=== PATIENT | male | born 1960 | race Caucasian/White ===

== ENCOUNTER → 2020-04-24 | Outpatient (CLI) | payer MEDICARE, SELFPAY ==
[2020-04-24 09:47] VITALS: BMI 24.4
--- NOTE | 2020-04-24 11:07 | EKG12_ITS ---
Test Reason : ROUTINE Blood Pressure : / mmHG Vent. Rate : 069 BPM Atrial Rate : 267 BPM P-R Int : 000 ms QRS Dur : 084 ms QT Int : 378 ms P-R-T Axes : 000 135 134 degrees QTc Int : 405 ms Normal sinus rhythm Low voltage QRS Left posterior fascicular block Abnormal ECG Confirmed by MINNA ELMORE, ANGELIKA ([id number]), publications editor CARMELINA BACON ([id number]) on 04/29/2020 10:25:05 AM Referred By: Loren Rojas Confirmed By:ANGELIKA BUITRAGO MD
--- NOTE | 2020-04-24 11:09 | RAD_ITS ---
STUDY: X-RAY CHEST REASON FOR EXAM: Male, 59 years old. SOFT MASS OF THE JAW, NECROSIS TECHNIQUE: PA and lateral views of the chest. COMPARISON: None. FINDINGS: Hyperinflation. Decreased bronchovascular markings in both lungs suggestive of a emphysematous changes. There is no demonstrated pleural abnormality. Normal size heart. Normal mediastinum and tremaine. There is prominence of the pulmonary hilar arteries without peripheral pulmonary vascular congestion, suggesting pulmonary hypertension. There is atherosclerotic tortuosity of the aortic arch and descending thoracic aorta. There are diffuse degenerative changes of the visualized thoracic spine. Prior laminectomy and fusion of the lower cervical spine. There is no demonstrated abnormality of the visualized soft tissue structures of the upper abdomen. RAD/Chest PA and Lateral IMPRESSION: Hyperinflation. Electronically Signed: Marck Whitney, at 15:34 EDT , Service support ,
[2020-04-24 11:28] LABS: Erythrocyte Sedimentation Rate 45 mm/hr (0-20)
[2020-04-24 11:30] LABS: Absolute Lymphocyte Count 1.77 X10^3/uL (0.83-4.51); Absolute Neutrophil Count 5.2 X10^3/uL (2.0-7.7); Basophil# 0.05 X10^3/uL; Basophil% 0.6 % (0-1); Eosinophil# 0.35 X10^3/uL; Eosinophils% 4.1 % (0-5); Hematocrit 32.3 % (40-54); Hemoglobin 10.2 g/dL (13.0-16.5); Lymphocyte # 1.77 X10^3/ul (4.0); Lymphocyte % 20.7 % (19-41); Mean Corp Hgb Conc 31.6 g/dL (32-36); Mean Corpuscular Hgb 27.9 pg (27.0-32.0); Mean Corpuscular Volume 88.3 fL (80-94); Mean Platelet Vol. 9.2 fl (6.2-12.0); Monocyte# 1.09 X10^3/uL; Monocyte% 12.7 % (0-10); NRBC Flagged by Analyzer 0 % (0-5); Neutrophil # 5.24 X10^3/uL (2.7-7.7); Neutrophil % 61.3 % (47-70); Platelet Count 347 K/mm3 (150-450); RBC Distribution Width CV 15.8 % (11.6-14.6); RBC Distribution Width SD 51.7 fl (35.1-43.9); Red Blood Count 3.66 M/mm3 (4.6-6.2); White Blood Count 8.6 K/mm3 (4.4-11.0)
[2020-04-24 11:39] LABS: Hemoglobin A1c 5.4 % (3.8-5.6)
[2020-04-24 11:59] LABS: ALB/GLOB Ratio 0.7 RATIO (0.9-2.4); AST(SGOT) 8 U/L (15-37); Alanine Aminotransfer ALT/SGPT 11 U/L (16-61); Albumin, Serum 3.1 g/dL (3.2-5.0); Alkaline Phosphatase 106 U/L (45-117); Anion Gap 4 (5-15); BUN 14 mg/dL (7-18); BUN/Creat Ratio 20.9 RATIO (10-20); Calcium,Total 8.7 mg/dL (8.5-10.1); Chloride 102 mmol/L (98-107); Creatinine, Serum 0.67 mg/dL (0.70-1.30); EST Glomerular Filtration Rate 130 mL/min (>60); Est Glom Filt Rate - Afr Amer 157 mL/min (>60); Globulin 4.6 g/dL (2.2-4.2); Glucose 80 mg/dL (74-106); Potassium 4.2 mmol/L (3.5-5.1); Prealbumin 21.1 mg/dL (20.0-40.0); Protein, Total 7.7 g/dL (6.4-8.2); Sodium Level 135 mmol/L (136-145)
== END | disposition home or self-care (01) ==
PROVIDERS: PCP Nurse Practitioner Family; Referring Provider Nurse Practitioner
DX: L59.8 Other specified disorders of the skin and subcutaneous tissue related to radiation (principal); C09.9 Malignant neoplasm of tonsil, unspecified; C05.9 Malignant neoplasm of palate, unspecified; Z92.3 Personal history of irradiation; H35.719 Central serous chorioretinopathy, unspecified eye
CPT/HCPCS: 36415; 71046; 80053; 83036; 84134; 85025; 85652; 93005; 99203; G0463

== ENCOUNTER 2020-05-08 09:30 | Outpatient (RCR) | payer MEDICARE, SELFPAY ==
[2020-04-24 09:47] VITALS: BP 93/63; PULSE 81; RESP 16; TEMP 36; BMI 24.4
--- NOTE | 2020-04-24 09:49 | WC ---
PT WILL BRING MED LIST IN AT NEXT VISIT.
--- NOTE | 2020-04-24 11:14 | PCM.CONHBO ---
(1) Soft tissue radionecrosis Status: Acute Current Visit: Yes Code(s): L59.8 - Other specified disorders of the skin and subcutaneous tissue related to radiation; Y84.2 - Radiological procedure and radiotherapy as the cause of abnormal reaction of the patient, or of later complication, without mention of misadventure at the time of the procedure (2) Cancer of tonsil Status: Chronic Current Visit: Yes Code(s): C09.9 - Malignant neoplasm of tonsil, unspecified (3) Central serous retinopathy Status: Chronic Current Visit: Yes Qualifiers: Code(s): H35.719 - Central serous chorioretinopathy, unspecified eye (4) Cancer of palate Status: Acute Current Visit: Yes Code(s): C05.9 - Malignant neoplasm of palate, unspecified (5) History of head and neck radiation Status: Acute Current Visit: Yes Code(s): Z92.3 - Personal history of irradiation History of Present Illness Date of Service: 04/24/20 Presenting Chief Complaint: HBO 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 Patient will obtain a chest x-ray labs EKG we will recheck all of his records from 2017 for radiation and chemotherapy. At that point we will get consent and HBO orientation and patient will be scheduled for HBO treatments the dentist that is doing the oral surgeon would like 30 treatments total 20 treatments prior to surgery and 10 treatments after surgery [] Past Medical History Chronic Problems Central serous retinopathy (Chronic) Hypertension (Chronic) Cancer of tonsil (Chronic) Dyslipidemia (Chronic) BPH (benign prostatic hyperplasia) (Chronic) GERD (gastroesophageal reflux disease) (Chronic) Psoriasis (Chronic) COPD (chronic obstructive pulmonary disease) (Chronic) Allergies/Adverse Reactions: Allergies No Known Allergies Allergy (Verified 04/28/17 10:48) Home Medications: Ambulatory Orders Medication Instructions Recorded Cyanocobalamin [Vitamin B12] 1,000 mcg PO DAILY 04/28/17 Glucosamine/MSM/Chondroitin A 1 each PO DAILY 04/28/17 [Glucosamine Chondroit MSM Tab] Metoprolol Tartrate [Lopressor 50 mg PO BID 04/28/17 (beta dar)] Omeprazole [Prilosec] 40 mg PO DAILY 04/28/17 Tadalafil [Cialis] 20 mg PO DAILY 04/28/17 Tamsulosin HCl [Flomax] 0.4 mg PO BID 04/28/17 Thiamine Hydrochloride [Vitamin B1] 100 mg PO DAILY 04/28/17 Acetaminophen [Tylenol] 650 mg PO Q6H PRN PRN 06/03/17 Amitriptyline HCl [Elavil] 25 mg PO QHS 06/03/17 Bxm Liquid [BMX LIQUID] 5 ml PO Q4H PRN PRN 06/03/17 Cetirizine HCl [Zyrtec] 10 mg PO DAILY 06/03/17 Fluconazole [Diflucan] 100 mg PO DAILY 06/03/17 Guaifenesin [Mucinex] 1,200 mg PO BID 06/03/17 Magnesium Oxide [Mag-Ox 400] 400 mg PO BID 06/03/17 Morphine Sulfate 0.5 - 1 ml PO Q4H PRN PRN 06/03/17 Oxycodone HCl 5 ml PO Q4H PRN PRN 06/03/17 cycloBENZAPRine HCl [Flexeril] 10 mg PO TID PRN PRN 06/03/17 Clotrimazole [Athlete's Foot] 60 gm TP BID #1 tube 06/04/17 Furosemide [Lasix] 40 mg PO DAILY #30 tablet 06/04/17 Maternal Family History: No pertinent history Smoking Status: Current every day smoker Tobacco Use: Cigarettes Alcohol: Sober Drugs: None Review of Systems Constitutional: Denies: Chills, Fever Eyes: Reports: - - Sinus and left eye. Denies: Blurred vision, Drainage, Pain HEENT: Denies: Difficulty Hearing, Difficulty Swallowing, Sore Throat, Visual Changes Cardiovascular: Denies: Chest Pain, Palpitations, Syncope Respiratory: Denies: Cough, Shortness of Breath Gastrointestinal: Denies: Abdominal Pain, Nausea, Vomiting Genitourinary: Denies: Dysuria, Frequency Musculoskeletal: Denies: Joint Pain, Muscle pain Skin: Denies: Jaundice, Rash Neurological: Denies: Balance problems, Change in Speech, Difficulty swallowing, Focal weakness Psychiatric: Denies: Anxiety, Depression Endocrine: Denies: Change in Body Habitus Hematologic/ Lymphatic: Reports: Anemia. Denies: Adenopathy - Physical Exam Vital Signs Temp Pulse Resp BP 96.8 F L 81 16 93/63 04/24/20 09:47 04/24/20 09:47 04/24/20 09:47 04/24/20 09:47 General: Oriented x3, Cooperative, Well developed HEENT: Atraumatic, PERRLA Oral: Moist Mucosa Neck: Supple, No JVD Lungs: Clear to auscultation, Normal air movement Cardiovascular: Regular rate, Regular Rhythm Abdomen: Bowel Sounds Present, Soft, Non Tender, No Hepato-splenomegaly Extremities: No clubbing, No edema Musculoskeletal: No Tenderness to Palpation of Joints or Extremities Lymphatic: No Cervical, Supraclavicular, or Inguinal Adenopathy Neurological: Cranial nerves II-XII grossly intact, Neuro grossly intact Psych/Mental Status: Normal Affect, Appropriate, Alert and oriented to time, place, person, mood and affect Assessment/Plan Active Problems Soft tissue radionecrosis (Acute) Cancer of palate (Acute) History of head and neck radiation (Acute) Central serous retinopathy (Chronic) Cancer of tonsil (Chronic) SHAVON BLANKENSHIP is an appropriate candidate for hyperbaric oxygen therapy. Hyperbaric Oxygen Therapy would be an essential adjunct in the resolution and treatment of this patient's presenting problem. This patient has sufficient physiologic and psychological stamina to undergo the rigors of hyperbaric oxygen therapy. As such, I recommend the following: Hyperbaric Oxygen Treatments at 2.0 RICKIE in 100% Oxygen for 90 minutes per treatment, for 30-40 treatments. I have discussed the possible benefits of hyperbaric oxygen therapy with this patient. I have also presented and described the risks, including: air gas embolism, pneumothorax, central nervous system and pulmonary oxygen toxicity, flash pulmonary edema, hypoglycemia, reversible visual refractive changes, ear and sinus adelina-trauma, and confinement anxiety. The patient has verbalized understanding of these risks, and is still wanting to undergo hyperbaric oxygen therapy. The patient understands the significant time and transportation commitment involved in daily treatments of up to two hours duration and has stated that they are willing to commit to this therapy. We will follow-up in 1 week with the results of lab work and x-rays EKG to progress on for further treatment with HBO.
[2020-05-08 09:53] VITALS: BP 105/68; PULSE 72; RESP 18; TEMP 35.8; BMI 24.4
--- NOTE | 2020-05-08 12:00 | PCM.CONHBO ---
(1) Soft tissue radionecrosis Status: Acute Current Visit: Yes Code(s): L59.8 - Other specified disorders of the skin and subcutaneous tissue related to radiation; Y84.2 - Radiological procedure and radiotherapy as the cause of abnormal reaction of the patient, or of later complication, without mention of misadventure at the time of the procedure (2) Cancer of tonsil Status: Chronic Current Visit: Yes Code(s): C09.9 - Malignant neoplasm of tonsil, unspecified (3) Central serous retinopathy Status: Chronic Current Visit: Yes Qualifiers: Code(s): H35.719 - Central serous chorioretinopathy, unspecified eye (4) Cancer of palate Status: Acute Current Visit: Yes Code(s): C05.9 - Malignant neoplasm of palate, unspecified (5) History of head and neck radiation Status: Acute Current Visit: Yes Code(s): Z92.3 - Personal history of irradiation History of Present Illness Date of Service: 05/08/20 Presenting Chief Complaint: HBO 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 The patient is a 59 year old M who [facility] the possibility of initiating hyperbaric oxygen therapy for treatment of radionecrosis of the left jaw.. 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 Patient is then chest x-ray has been found to be clear EKG is abnormal but cardiology thinks is just due to his axis echocardiogram is scheduled for this Wednesday depending on the echocardiogram and the ejection fraction that is the only thing holding back on starting HBO HBO will be started at 1 treatment per day delivered Wednesday through Wednesday for a 2 ingrid absolute RICKIE for 90 minutes without air breaks patient will have 30 total treatments 20 treatments then surgery and then another 10 treatments or if necessary will expand for more. Patient was instructed that he cannot smoke 2 to 3 hours prior to being pressurized and patient will be oriented daily to the HBO treatments and vital signs will be monitored closely [] Past Medical History Chronic Problems (Last Reviewed 05/06/20 @ 16:[address] 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) Bilateral lower extremity edema (Chronic) Dyslipidemia (Chronic) BPH (benign prostatic hyperplasia) (Chronic) GERD (gastroesophageal reflux disease) (Chronic) Psoriasis (Chronic) COPD (chronic obstructive pulmonary disease) (Chronic) Allergies/Adverse Reactions: Allergies No Known Allergies Allergy (Verified 05/06/20 10:31) Home Medications: Ambulatory Orders Medication Instructions Recorded Omeprazole [Prilosec] 40 mg PO DAILY 04/28/17 Acetaminophen [Tylenol] 650 mg PO Q6H PRN PRN 06/03/17 Cetirizine HCl [Zyrtec] 10 mg PO DAILY 06/03/17 albuterol sulfate 90 mcg/actuation 2 puff INHALATION Q6H PRN 05/06/20 aerosol inhaler baclofen 10 mg tablet 10 mg PO BID tab 05/06/20 ferrous sulfate 325 mg (65 mg 325 mg PO BID 05/06/20 iron) tablet gabapentin 300 mg capsule 600 mg PO TID cap 05/06/20 guaifenesin 1,200 mg tablet, 1,200 mg PO BID PRN 05/06/20 extended release 12 hr levothyroxine 75 mcg tablet 75 mcg PO DAILY tab 05/06/20 metoprolol succinate 25 mg PO 05/06/20 tablet,extended release 24 hr multivitamin 1 tab PO DAILY 05/06/20 sertraline 100 mg tablet 200 mg PO Q24H tab 05/06/20 tamsulosin 0.4 mg capsule 0.8 mg PO DAILY cap 05/06/20 Maternal Family History: Family History (Last Reviewed 05/06/20 @ 16:[address] Ja Worthington MD) Father Cancer Mother CVA (cerebral vascular accident) Family History: No pertinent history Smoking Status: Current every day smoker Tobacco Use: Cigarettes Alcohol: Sober Drugs: None Review of Systems Constitutional: Denies: Chills, Fever Eyes: Denies: Blurred vision, Drainage, Pain HEENT: Denies: Difficulty Hearing, Difficulty Swallowing, Sore Throat, Visual Changes Cardiovascular: Denies: Chest Pain, Palpitations, Syncope Respiratory: Denies: Cough, Shortness of Breath Gastrointestinal: Denies: Abdominal Pain, Nausea, Vomiting Genitourinary: Denies: Dysuria, Frequency Musculoskeletal: Denies: Joint Pain, Muscle pain Skin: Denies: Jaundice, Rash Neurological: Denies: Balance problems, Change in Speech, Difficulty swallowing, Focal weakness Psychiatric: Denies: Anxiety, Depression Endocrine: Denies: Change in Body Habitus Hematologic/ Lymphatic: Denies: Adenopathy - Physical Exam Vital Signs Temp Pulse Resp BP 96.5 F L 72 18 105/68 05/08/20 09:53 05/08/20 09:53 05/08/20 09:53 05/08/20 09:53 General: Oriented x3, Cooperative, Well developed HEENT: Atraumatic, PERRLA Oral: Moist Mucosa Neck: Supple, No JVD Lungs: Clear to auscultation, Normal air movement Cardiovascular: Regular rate, Regular Rhythm Abdomen: Bowel Sounds Present, Soft, Non Tender, No Hepato-splenomegaly Extremities: No clubbing, No edema Wound Measurements and Assessment WC - Nurse 2 - General Ulcer CM Notes Start: 04/24/20 09:32 Freq: Status: Active Protocol: Activity Type Activity Date Activity User E-Sign Co-Sign Detail Recorded Client Recorded Date Recorded By Document 05/08/20 10:18 MW [id number] 05/08/20 10:21 MW 05/08/20 10:18 Pain Scale: 0-10 Numeric [Pain] -Is Patient Pain Free? Yes Musculoskeletal: No Tenderness to Palpation of Joints or Extremities Lymphatic: No Cervical, Supraclavicular, or Inguinal Adenopathy Neurological: Cranial nerves II-XII grossly intact, Neuro grossly intact Psych/Mental Status: Normal Affect, Appropriate Assessment/Plan Active Problems (Last Reviewed 05/06/20 @ 16:[address] Ja Worthington MD) Soft tissue radionecrosis (Acute) Cancer of palate (Acute) History of head and neck radiation (Acute) Central serous retinopathy (Chronic) Cancer of tonsil (Chronic) SHAVON BLANKENSHIP is an appropriate candidate for hyperbaric oxygen therapy. Hyperbaric Oxygen Therapy would be an essential adjunct in the resolution and treatment of this patient's presenting problem. This patient has sufficient physiologic and psychological stamina to undergo the rigors of hyperbaric oxygen therapy. As such, I recommend the following: Hyperbaric Oxygen Treatments at 2.0 RICKIE in 100% Oxygen for 90 minutes per treatment, for [] treatments. I have discussed the possible benefits of hyperbaric oxygen therapy with this patient. I have also presented and described the risks, including: air gas embolism, pneumothorax, central nervous system and pulmonary oxygen toxicity, flash pulmonary edema, hypoglycemia, reversible visual refractive changes, ear and sinus adelina-trauma, and confinement anxiety. The patient has verbalized understanding of these risks, and is still wanting to undergo hyperbaric oxygen therapy. The patient understands the significant time and transportation commitment involved in daily treatments of up to two hours duration and has stated that they are willing to commit to this therapy. 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
== END 2020-05-15 23:59 ==
LOC: WC 09:30
PROVIDERS: PCP Nurse Practitioner Family; Visit Provider Nurse Practitioner
DX: L59.8 Other specified disorders of the skin and subcutaneous tissue related to radiation (principal); Y84.2 Radiological procedure and radiotherapy as the cause of abnormal reaction of the patient, or of later complication, without mention of misadventure at the time of the procedure; M27.2 Inflammatory conditions of jaws; C09.9 Malignant neoplasm of tonsil, unspecified; H35.719 Central serous chorioretinopathy, unspecified eye; E78.5 Hyperlipidemia, unspecified; I10 Essential (primary) hypertension; J44.9 Chronic obstructive pulmonary disease, unspecified; N40.0 Benign prostatic hyperplasia without lower urinary tract symptoms; L40.9 Psoriasis, unspecified; K21.9 Gastro-esophageal reflux disease without esophagitis; F17.210 Nicotine dependence, cigarettes, uncomplicated; Z92.3 Personal history of irradiation; Z82.3 Family history of stroke
CPT/HCPCS: 99203; 99212; G0463

== ENCOUNTER → 2020-05-10 | Outpatient (CLI) | payer MEDICARE, SELFPAY ==
[2020-05-08 10:27] VITALS: BMI 24.5
--- NOTE | 2020-05-10 13:50 | ECHOD_ITS ---
Reason For Study: Abnormal EKG Procedure This was a 2D Doppler, Color Flow transthoracic echocardiogram. Contrast injection was performed. Technically difficult study, unable to obtain PLAX image. PSAX were taken from subcostal window. Exam performed in department. Left Ventricle Normal LV size. The estimated ejection fraction is 55 %. No evidence for diastolic dysfunction. No regional wall motion abnormalities noted. Right Ventricle Normal RV size. Normal systolic function. Atria Normal left atrium. Normal right atrium. No doppler evidence for ASD. Bubble contrast study negative for right to left interatrial shunt. Mitral Valve There is no mitral valve stenosis. No mitral valve insufficiency. Tricuspid Valve There is no tricuspid stenosis. No tricuspid valve insufficiency. Unable to estimate RV systolic pressure due to inadequate jet, pulmonary artery pressure probably normal. Aortic Valve Trisinus/trileaflet aortic valve. There is no aortic stenosis. No aortic valve insufficiency. Pulmonic Valve There is no pulmonic valvular stenosis. No pulmonic valve insufficiency. Great Vessels Normal aortic root. Pericardium/Pleural No pericardial effusion. Medication 22 gauge I.V. with prn adaptor inserted into right arm. Performed a rapid injection of agitated mix of 9 cc saline and 1cc air to assess for atrial septal defect. MMode/2D Measurements & Calculations RVDd: 3.5 cm LAV(MOD-sp4): 32.7 ml LA A4 area: 14.1 cm2 RA A4 area: 16.1 cm2 Time Measurements MV dec time: 0.24 sec Doppler Measurements & Calculations MV E max chaz: 49.5 cm/sec Lat Peak E' Chaz: 11.7 cm/sec Med Peak E' Chaz: 8.5 cm/sec MV A max chaz: 76.8 cm/sec E/E' lat: 4.2 E/E' med: 5.9 MV E/A: 0.65 MV V2 max: 81.5 cm/sec MV P1/2t max chaz: 61.5 cm/sec Ao V2 max: 111.7 cm/sec MV max P.7 mmHg MV P1/2t: 78.8 msec Ao max P.0 mmHg MV V2 mean: 44.6 cm/sec MV mean P.93 mmHg MV dec slope: 228.6 cm/sec2 MV V2 VTI: 16.9 cm MVA(P1/2t): 2.8 cm2 LV V1 max: 92.1 cm/sec PA V2 max: 102.1 cm/sec TR max chaz: 239.2 cm/sec LV V1 max P.4 mmHg TR max P.9 mmHg Interpretation Summary The estimated ejection fraction is 55 %. No evidence for diastolic dysfunction. Ordering Physician: aJ Worthington Referring Physician: Ja Worthington Performed By: Tulio Khan RCS
== END | disposition home or self-care (01) ==
PROVIDERS: PCP Nurse Practitioner Family; Referring Provider Specialist; Visit Provider Specialist
DX: R94.31 Abnormal electrocardiogram [ECG] [EKG] (principal)
CPT/HCPCS: 93306; A4216

== ENCOUNTER 2020-06-14 13:00 | Outpatient (RCR) | payer MEDICARE, SELFPAY ==
[2020-05-08 10:27] VITALS: BMI 24.5
[2020-05-16 00:18] VITALS: BP 105/68; PULSE 72; RESP 18; TEMP 35.8
--- NOTE | 2020-05-20 09:59 | WC ---
05/20/20 Approval from [employer] PPO for 120 Units of HBO From 05/22/20 to 11/16/2020 Auth # [id number]
[2020-05-23 14:10] VITALS: BP 120/73; BP 136/93; PULSE 66; PULSE 71; RESP 16; RESP 18; TEMP 36.2; TEMP 36.6
--- NOTE | 2020-05-23 15:58 | PCM.HBO.PN ---
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 Progress:Today's session represents the 1st session of hyperbaric oxygen therapy, of an expected 30 such treatments. Tolerance of hyperbaric oxygen therapy: Hyperbaric oxygen therapy was administered as per the facility's protocol. Hyperbaric oxygen therapy was administered for 90 minutes at 2 ingrid, with no air breaks. Upon emergence from the hyperbaric oxygen chamber the patient had no complaints or complications. The patient's vital signs remained stable. The patient was discharged in good condition. Past Medical History Chronic Problems (Last Reviewed 05/06/20 @ 16:[address] 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) Bilateral lower extremity edema (Chronic) Dyslipidemia (Chronic) BPH (benign prostatic hyperplasia) (Chronic) GERD (gastroesophageal reflux disease) (Chronic) Psoriasis (Chronic) COPD (chronic obstructive pulmonary disease) (Chronic) Allergies/Adverse Reactions: Allergies No Known Allergies Allergy (Verified 05/06/20 10:31) Home Medications: Ambulatory Orders Medication Instructions Recorded Omeprazole [Prilosec] 40 mg PO DAILY 04/28/17 Acetaminophen [Tylenol] 650 mg PO Q6H PRN PRN 06/03/17 Cetirizine HCl [Zyrtec] 10 mg PO DAILY 06/03/17 albuterol sulfate 90 mcg/actuation 2 puff INHALATION Q6H PRN 05/06/20 aerosol inhaler baclofen 10 mg tablet 10 mg PO BID tab 05/06/20 ferrous sulfate 325 mg (65 mg 325 mg PO BID 05/06/20 iron) tablet gabapentin 300 mg capsule 600 mg PO TID cap 05/06/20 guaifenesin 1,200 mg tablet, 1,200 mg PO BID PRN 05/06/20 extended release 12 hr levothyroxine 75 mcg tablet 75 mcg PO DAILY tab 05/06/20 metoprolol succinate 25 mg PO 05/06/20 tablet,extended release 24 hr multivitamin 1 tab PO DAILY 05/06/20 sertraline 100 mg tablet 200 mg PO Q24H tab 05/06/20 tamsulosin 0.4 mg capsule 0.8 mg PO DAILY cap 05/06/20 Maternal Family History: Family History (Last Reviewed 05/06/20 @ 16:[address] Ja Worthington MD) Father Cancer Mother CVA (cerebral vascular accident) Family History: No pertinent history Smoking Status: Current every day smoker Tobacco Use: Cigarettes Physical Exam Vital Signs Temp Pulse Resp BP 97.8 F 71 18 120/73 05/23/20 14:10 05/23/20 14:10 05/23/20 14:10 05/23/20 14:10 General: Alert, Oriented x3, Cooperative, No apparent distress HEENT: Atraumatic, PERRLA, EOMI, Normocephalic, TM's Clear, EAC Clear Lungs: Clear to auscultation, Normal air movement, No rhonchi, No wheeze, No rales Cardiovascular: Regular rate, Regular Rhythm, Normal S1, Normal S2, No murmurs Psych/Mental Status: Normal Affect, Appropriate, Alert and oriented to time, place, person, mood and affect Assessment/Plan The patient appears to be tolerating hyperbaric oxygen therapy well, which will be continued as per the patient's medical plan. Treatment Course Number Number of HBO Treatments 30 Ordered Treatment Course Number 1 Treatment # 1 Chamber # [id number] Chamber Type Monoplace Other - Detail 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
--- NOTE | 2020-05-24 16:33 | PCM.HBO.PN ---
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 Progress:Today's session represents the 2nd session of hyperbaric oxygen therapy, of an expected 30 such treatments. Tolerance of hyperbaric oxygen therapy: Hyperbaric oxygen therapy was administered as per the facility's protocol. Hyperbaric oxygen therapy was administered for 90 minutes at 2 ingrid, with no air breaks. Upon emergence from the hyperbaric oxygen chamber the patient had no complaints or complications. The patient's vital signs remained stable. The patient was discharged in good condition. Past Medical History Chronic Problems (Last Reviewed 05/06/20 @ 16:[address] 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) Bilateral lower extremity edema (Chronic) Dyslipidemia (Chronic) BPH (benign prostatic hyperplasia) (Chronic) GERD (gastroesophageal reflux disease) (Chronic) Psoriasis (Chronic) COPD (chronic obstructive pulmonary disease) (Chronic) Allergies/Adverse Reactions: Allergies No Known Allergies Allergy (Verified 05/06/20 10:31) Home Medications: Ambulatory Orders Medication Instructions Recorded Omeprazole [Prilosec] 40 mg PO DAILY 04/28/17 Acetaminophen [Tylenol] 650 mg PO Q6H PRN PRN 06/03/17 Cetirizine HCl [Zyrtec] 10 mg PO DAILY 06/03/17 albuterol sulfate 90 mcg/actuation 2 puff INHALATION Q6H PRN 05/06/20 aerosol inhaler baclofen 10 mg tablet 10 mg PO BID tab 05/06/20 ferrous sulfate 325 mg (65 mg 325 mg PO BID 05/06/20 iron) tablet gabapentin 300 mg capsule 600 mg PO TID cap 05/06/20 guaifenesin 1,200 mg tablet, 1,200 mg PO BID PRN 05/06/20 extended release 12 hr levothyroxine 75 mcg tablet 75 mcg PO DAILY tab 05/06/20 metoprolol succinate 25 mg PO 05/06/20 tablet,extended release 24 hr multivitamin 1 tab PO DAILY 05/06/20 sertraline 100 mg tablet 200 mg PO Q24H tab 05/06/20 tamsulosin 0.4 mg capsule 0.8 mg PO DAILY cap 05/06/20 Maternal Family History: Family History (Last Reviewed 05/06/20 @ 16:[address] Ja Worthington MD) Father Cancer Mother CVA (cerebral vascular accident) Family History: No pertinent history Smoking Status: Current every day smoker Tobacco Use: Cigarettes Physical Exam Vital Signs Temp Pulse Resp BP 97.8 F 71 18 120/73 05/23/20 14:10 05/23/20 14:10 05/23/20 14:10 05/23/20 14:10 General: Alert, Oriented x3, Cooperative, No apparent distress HEENT: Atraumatic, TM's Clear Lungs: Clear to auscultation, Normal air movement Cardiovascular: Regular rate, Regular Rhythm Psych/Mental Status: Normal Affect, Appropriate, Alert and oriented to time, place, person, mood and affect Assessment/Plan Treatment Course Number Number of HBO Treatments 30 Ordered Treatment Course Number 1 Treatment # 2 Chamber # [id number] Chamber Type Monoplace Other - Detail 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
[2020-05-24 16:50] VITALS: BP 125/64; BP 128/90; PULSE 65; PULSE 77; RESP 18; TEMP 36.3; TEMP 36.4
--- NOTE | 2020-05-27 15:10 | PCM.HBO.PN ---
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 Progress:Today's session represents the 3rd session of hyperbaric oxygen therapy, of an expected 30 such treatments. Tolerance of hyperbaric oxygen therapy: Hyperbaric oxygen therapy was administered as per the facility's protocol. Hyperbaric oxygen therapy was administered for 90 minutes at 2 ingrid, with no air breaks. Upon emergence from the hyperbaric oxygen chamber the patient had no complaints or complications. The patient's vital signs remained stable. The patient was discharged in good condition. Past Medical History Chronic Problems (Last Reviewed 05/06/20 @ 16:[address] 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) Bilateral lower extremity edema (Chronic) Dyslipidemia (Chronic) BPH (benign prostatic hyperplasia) (Chronic) GERD (gastroesophageal reflux disease) (Chronic) Psoriasis (Chronic) COPD (chronic obstructive pulmonary disease) (Chronic) Allergies/Adverse Reactions: Allergies No Known Allergies Allergy (Verified 05/06/20 10:31) Home Medications: Ambulatory Orders Medication Instructions Recorded Omeprazole [Prilosec] 40 mg PO DAILY 04/28/17 Acetaminophen [Tylenol] 650 mg PO Q6H PRN PRN 06/03/17 Cetirizine HCl [Zyrtec] 10 mg PO DAILY 06/03/17 albuterol sulfate 90 mcg/actuation 2 puff INHALATION Q6H PRN 05/06/20 aerosol inhaler baclofen 10 mg tablet 10 mg PO BID tab 05/06/20 ferrous sulfate 325 mg (65 mg 325 mg PO BID 05/06/20 iron) tablet gabapentin 300 mg capsule 600 mg PO TID cap 05/06/20 guaifenesin 1,200 mg tablet, 1,200 mg PO BID PRN 05/06/20 extended release 12 hr levothyroxine 75 mcg tablet 75 mcg PO DAILY tab 05/06/20 metoprolol succinate 25 mg PO 05/06/20 tablet,extended release 24 hr multivitamin 1 tab PO DAILY 05/06/20 sertraline 100 mg tablet 200 mg PO Q24H tab 05/06/20 tamsulosin 0.4 mg capsule 0.8 mg PO DAILY cap 05/06/20 Maternal Family History: Family History (Last Reviewed 05/06/20 @ 16:[address] Ja Worthington MD) Father Cancer Mother CVA (cerebral vascular accident) Family History: No pertinent history Smoking Status: Current every day smoker Tobacco Use: Cigarettes Physical Exam Vital Signs Temp Pulse Resp BP 97.5 F L 77 18 125/64 H 05/24/20 16:50 05/24/20 16:50 05/24/20 16:50 05/24/20 16:50 General: Alert, Oriented x3, Cooperative, No apparent distress HEENT: Atraumatic, TM's Clear Lungs: Clear to auscultation, Normal air movement Cardiovascular: Regular rate, Regular Rhythm Psych/Mental Status: Normal Affect, Appropriate, Alert and oriented to time, place, person, mood and affect Assessment/Plan Treatment Course Number Number of HBO Treatments 30 Ordered Treatment Course Number 1 Treatment # 3 Chamber # [id number] Chamber Type Monoplace Other - Detail 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
[2020-05-27 15:16] VITALS: BP 128/88; BP 133/98; PULSE 72; PULSE 87; RESP 16; TEMP 35.8; TEMP 36.2
--- NOTE | 2020-05-28 13:25 | PCM.HBO.PN ---
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 Progress:Today's session represents the 4th session of hyperbaric oxygen therapy, of an expected 30 such treatments. Tolerance of hyperbaric oxygen therapy: Hyperbaric oxygen therapy was administered as per the facility's protocol. Hyperbaric oxygen therapy was administered for 90 minutes at 2 ingrid, with no air breaks. Upon emergence from the hyperbaric oxygen chamber the patient had no complaints or complications. The patient's vital signs remained stable. The patient was discharged in good condition. Past Medical History Chronic Problems (Last Reviewed 05/06/20 @ 16:[address] 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) Bilateral lower extremity edema (Chronic) Dyslipidemia (Chronic) BPH (benign prostatic hyperplasia) (Chronic) GERD (gastroesophageal reflux disease) (Chronic) Psoriasis (Chronic) COPD (chronic obstructive pulmonary disease) (Chronic) Allergies/Adverse Reactions: Allergies No Known Allergies Allergy (Verified 05/06/20 10:31) Home Medications: Ambulatory Orders Medication Instructions Recorded Omeprazole [Prilosec] 40 mg PO DAILY 04/28/17 Acetaminophen [Tylenol] 650 mg PO Q6H PRN PRN 06/03/17 Cetirizine HCl [Zyrtec] 10 mg PO DAILY 06/03/17 albuterol sulfate 90 mcg/actuation 2 puff INHALATION Q6H PRN 05/06/20 aerosol inhaler baclofen 10 mg tablet 10 mg PO BID tab 05/06/20 ferrous sulfate 325 mg (65 mg 325 mg PO BID 05/06/20 iron) tablet gabapentin 300 mg capsule 600 mg PO TID cap 05/06/20 guaifenesin 1,200 mg tablet, 1,200 mg PO BID PRN 05/06/20 extended release 12 hr levothyroxine 75 mcg tablet 75 mcg PO DAILY tab 05/06/20 metoprolol succinate 25 mg PO 05/06/20 tablet,extended release 24 hr multivitamin 1 tab PO DAILY 05/06/20 sertraline 100 mg tablet 200 mg PO Q24H tab 05/06/20 tamsulosin 0.4 mg capsule 0.8 mg PO DAILY cap 05/06/20 Maternal Family History: Family History (Last Reviewed 05/06/20 @ 16:[address] Ja Worthington MD) Father Cancer Mother CVA (cerebral vascular accident) Family History: No pertinent history Smoking Status: Current every day smoker Tobacco Use: Cigarettes Physical Exam Vital Signs Temp Pulse Resp BP 97.2 F L 87 16 128/88 H 05/27/20 15:16 05/27/20 15:16 05/27/20 15:16 05/27/20 15:16 General: Alert, Oriented x3, Cooperative, No apparent distress HEENT: Atraumatic, TM's Clear Lungs: Clear to auscultation, Normal air movement Cardiovascular: Regular rate, Regular Rhythm Psych/Mental Status: Normal Affect, Appropriate, Alert and oriented to time, place, person, mood and affect Assessment/Plan Treatment Course Number Number of HBO Treatments 30 Ordered Treatment Course Number 1 Treatment # 4 Chamber # 674-40 Chamber Type Monoplace Other - Detail 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
[2020-05-28 15:00] VITALS: BP 133/89; PULSE 64; RESP 16; TEMP 36.4
--- NOTE | 2020-05-29 14:38 | HBO.PN.PCM_ITS ---
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 Progress:Today's session represents the 5th session of hyperbaric oxygen therapy, of an expected 30 such treatments. Tolerance of hyperbaric oxygen therapy: Hyperbaric oxygen therapy was administered as per the facility's protocol. Hyperbaric oxygen therapy was administered for 90 minutes at 2 ingrid, with no air breaks. Upon emergence from the hyperbaric oxygen chamber the patient had no complaints or complications. The patient's vital signs remained stable. The patient was discharged in good condition. Past Medical History Chronic Problems (Last Reviewed 05/06/20 @ 16:[address] 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) Bilateral lower extremity edema (Chronic) Dyslipidemia (Chronic) BPH (benign prostatic hyperplasia) (Chronic) GERD (gastroesophageal reflux disease) (Chronic) Psoriasis (Chronic) COPD (chronic obstructive pulmonary disease) (Chronic) Allergies/Adverse Reactions: Allergies No Known Allergies Allergy (Verified 05/06/20 10:31) Home Medications: Ambulatory Orders Medication Instructions Recorded Omeprazole [Prilosec] 40 mg PO DAILY 04/28/17 Acetaminophen [Tylenol] 650 mg PO Q6H PRN PRN 06/03/17 Cetirizine HCl [Zyrtec] 10 mg PO DAILY 06/03/17 albuterol sulfate 90 mcg/actuation 2 puff INHALATION Q6H PRN 05/06/20 aerosol inhaler baclofen 10 mg tablet 10 mg PO BID tab 05/06/20 ferrous sulfate 325 mg (65 mg 325 mg PO BID 05/06/20 iron) tablet gabapentin 300 mg capsule 600 mg PO TID cap 05/06/20 guaifenesin 1,200 mg tablet, 1,200 mg PO BID PRN 05/06/20 extended release 12 hr levothyroxine 75 mcg tablet 75 mcg PO DAILY tab 05/06/20 metoprolol succinate 25 mg PO 05/06/20 tablet,extended release 24 hr multivitamin 1 tab PO DAILY 05/06/20 sertraline 100 mg tablet 200 mg PO Q24H tab 05/06/20 tamsulosin 0.4 mg capsule 0.8 mg PO DAILY cap 05/06/20 Maternal Family History: Family History (Last Reviewed 05/06/20 @ 16:[address] Ja Worthington MD) Father Cancer Mother CVA (cerebral vascular accident) Family History: No pertinent history Smoking Status: Current every day smoker Tobacco Use: Cigarettes Physical Exam Vital Signs Temp Pulse Resp BP 97.6 F L 64 16 133/89 H 05/28/20 15:00 05/28/20 15:00 05/28/20 15:00 05/28/20 15:00 General: Alert, Oriented x3, Cooperative, No apparent distress HEENT: Atraumatic, TM's Clear Lungs: Clear to auscultation, Normal air movement Cardiovascular: Regular rate, Regular Rhythm Psych/Mental Status: Normal Affect, Appropriate, Alert and oriented to time, place, person, mood and affect Assessment/Plan Treatment Course Number Number of HBO Treatments 30 Ordered Treatment Course Number 1 Treatment # 5 Chamber # 2 Chamber Type Monoplace Other - Detail 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
[2020-05-29 15:27] VITALS: BP 112/82; BP 134/96; PULSE 79; PULSE 89; RESP 16; TEMP 35.9
[2020-05-30 14:26] VITALS: BP 102/65; BP 120/85; PULSE 72; PULSE 86; RESP 16; RESP 20; TEMP 36.1; TEMP 36.2
[2020-05-31 15:10] VITALS: BP 107/74; BP 122/85; PULSE 75; PULSE 86; RESP 16; TEMP 36.3; TEMP 36.6
--- NOTE | 2020-05-31 15:28 | PCM.HBO.PN ---
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 Progress:Today's session represents the 7th session of hyperbaric oxygen therapy, of an expected 30 such treatments. Tolerance of hyperbaric oxygen therapy: Hyperbaric oxygen therapy was administered as per the facility's protocol. Hyperbaric oxygen therapy was administered for 90 minutes at 2 ingrid, with no air breaks. Upon emergence from the hyperbaric oxygen chamber the patient had no complaints or complications. The patient's vital signs remained stable. The patient was discharged in good condition. Past Medical History Chronic Problems (Last Reviewed 05/06/20 @ 16:[address] 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) Bilateral lower extremity edema (Chronic) Dyslipidemia (Chronic) BPH (benign prostatic hyperplasia) (Chronic) GERD (gastroesophageal reflux disease) (Chronic) Psoriasis (Chronic) COPD (chronic obstructive pulmonary disease) (Chronic) Allergies/Adverse Reactions: Allergies No Known Allergies Allergy (Verified 05/06/20 10:31) Home Medications: Ambulatory Orders Medication Instructions Recorded Omeprazole [Prilosec] 40 mg PO DAILY 04/28/17 Acetaminophen [Tylenol] 650 mg PO Q6H PRN PRN 06/03/17 Cetirizine HCl [Zyrtec] 10 mg PO DAILY 06/03/17 albuterol sulfate 90 mcg/actuation 2 puff INHALATION Q6H PRN 05/06/20 aerosol inhaler baclofen 10 mg tablet 10 mg PO BID tab 05/06/20 ferrous sulfate 325 mg (65 mg 325 mg PO BID 05/06/20 iron) tablet gabapentin 300 mg capsule 600 mg PO TID cap 05/06/20 guaifenesin 1,200 mg tablet, 1,200 mg PO BID PRN 05/06/20 extended release 12 hr levothyroxine 75 mcg tablet 75 mcg PO DAILY tab 05/06/20 metoprolol succinate 25 mg PO 05/06/20 tablet,extended release 24 hr multivitamin 1 tab PO DAILY 05/06/20 sertraline 100 mg tablet 200 mg PO Q24H tab 05/06/20 tamsulosin 0.4 mg capsule 0.8 mg PO DAILY cap 05/06/20 Maternal Family History: Family History (Last Reviewed 05/06/20 @ 16:[address] Ja Worthington MD) Father Cancer Mother CVA (cerebral vascular accident) Family History: No pertinent history Smoking Status: Current every day smoker Tobacco Use: Cigarettes Physical Exam Vital Signs Temp Pulse Resp BP 97.8 F 86 16 107/74 05/31/20 15:10 05/31/20 15:10 05/31/20 15:10 05/31/20 15:10 General: Alert, Oriented x3, Cooperative, No apparent distress Psych/Mental Status: Normal Affect, Appropriate Assessment/Plan The patient appears to be tolerating hyperbaric oxygen therapy well, which will be continued as per the patient's medical plan. 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
[2020-06-03 13:35] VITALS: BP 110/74; BP 120/84; PULSE 68; PULSE 72; RESP 16; RESP 18; TEMP 35.8
--- NOTE | 2020-06-03 15:41 | PCM.HBO.PN ---
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 Progress:Today's session represents the 8th session of hyperbaric oxygen therapy, of an expected 30 such treatments. Tolerance of hyperbaric oxygen therapy: Hyperbaric oxygen therapy was administered as per the facility's protocol. Hyperbaric oxygen therapy was administered for 90 minutes at 2 ingrid, with no air breaks. Upon emergence from the hyperbaric oxygen chamber the patient had no complaints or complications. The patient's vital signs remained stable. The patient was discharged in good condition. Past Medical History Chronic Problems (Last Updated 05/31/20 @ 15:[address] 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) Bilateral lower extremity edema (Chronic) Dyslipidemia (Chronic) BPH (benign prostatic hyperplasia) (Chronic) GERD (gastroesophageal reflux disease) (Chronic) Psoriasis (Chronic) COPD (chronic obstructive pulmonary disease) (Chronic) Allergies/Adverse Reactions: Allergies No Known Allergies Allergy (Verified 05/06/20 10:31) Home Medications: Ambulatory Orders Medication Instructions Recorded Omeprazole [Prilosec] 40 mg PO DAILY 04/28/17 Acetaminophen [Tylenol] 650 mg PO Q6H PRN PRN 06/03/17 Cetirizine HCl [Zyrtec] 10 mg PO DAILY 06/03/17 albuterol sulfate 90 mcg/actuation 2 puff INHALATION Q6H PRN 05/06/20 aerosol inhaler baclofen 10 mg tablet 10 mg PO BID tab 05/06/20 ferrous sulfate 325 mg (65 mg 325 mg PO BID 05/06/20 iron) tablet gabapentin 300 mg capsule 600 mg PO TID cap 05/06/20 guaifenesin 1,200 mg tablet, 1,200 mg PO BID PRN 05/06/20 extended release 12 hr levothyroxine 75 mcg tablet 75 mcg PO DAILY tab 05/06/20 metoprolol succinate 25 mg PO 05/06/20 tablet,extended release 24 hr multivitamin 1 tab PO DAILY 05/06/20 sertraline 100 mg tablet 200 mg PO Q24H tab 05/06/20 tamsulosin 0.4 mg capsule 0.8 mg PO DAILY cap 05/06/20 Maternal Family History: Family History (Last Reviewed 05/06/20 @ 16:[address] Ja Worthington MD) Father Cancer Mother CVA (cerebral vascular accident) Family History: No pertinent history Smoking Status: Current every day smoker Tobacco Use: Cigarettes Physical Exam Vital Signs Temp Pulse Resp BP 96.5 F L 72 18 110/74 06/03/20 13:35 06/03/20 13:35 06/03/20 13:35 06/03/20 13:35 General: Alert, Oriented x3, Cooperative HEENT: Atraumatic, TM's Clear Lungs: Clear to auscultation, Normal air movement Cardiovascular: Regular rate, Regular Rhythm Psych/Mental Status: Normal Affect, Appropriate, Alert and oriented to time, place, person, mood and affect Assessment/Plan Treatment Course Number Number of HBO Treatments 30 Ordered Treatment Course Number 1 Treatment # 8 Chamber # 674-40 Chamber Type Monoplace Other - Detail 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
--- NOTE | 2020-06-04 13:36 | PCM.HBO.PN ---
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 Progress:Today's session represents the 9th session of hyperbaric oxygen therapy, of an expected 30 such treatments. Tolerance of hyperbaric oxygen therapy: Hyperbaric oxygen therapy was administered as per the facility's protocol. Hyperbaric oxygen therapy was administered for 90 minutes at 2 ingrid, with no air breaks. Upon emergence from the hyperbaric oxygen chamber the patient had no complaints or complications. The patient's vital signs remained stable. The patient was discharged in good condition. Past Medical History Chronic Problems (Last Updated 05/31/20 @ 15:[address] 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) Bilateral lower extremity edema (Chronic) Dyslipidemia (Chronic) BPH (benign prostatic hyperplasia) (Chronic) GERD (gastroesophageal reflux disease) (Chronic) Psoriasis (Chronic) COPD (chronic obstructive pulmonary disease) (Chronic) Allergies/Adverse Reactions: Allergies No Known Allergies Allergy (Verified 05/06/20 10:31) Home Medications: Ambulatory Orders Medication Instructions Recorded Omeprazole [Prilosec] 40 mg PO DAILY 04/28/17 Acetaminophen [Tylenol] 650 mg PO Q6H PRN PRN 06/03/17 Cetirizine HCl [Zyrtec] 10 mg PO DAILY 06/03/17 albuterol sulfate 90 mcg/actuation 2 puff INHALATION Q6H PRN 05/06/20 aerosol inhaler baclofen 10 mg tablet 10 mg PO BID tab 05/06/20 ferrous sulfate 325 mg (65 mg 325 mg PO BID 05/06/20 iron) tablet gabapentin 300 mg capsule 600 mg PO TID cap 05/06/20 guaifenesin 1,200 mg tablet, 1,200 mg PO BID PRN 05/06/20 extended release 12 hr levothyroxine 75 mcg tablet 75 mcg PO DAILY tab 05/06/20 metoprolol succinate 25 mg PO 05/06/20 tablet,extended release 24 hr multivitamin 1 tab PO DAILY 05/06/20 sertraline 100 mg tablet 200 mg PO Q24H tab 05/06/20 tamsulosin 0.4 mg capsule 0.8 mg PO DAILY cap 05/06/20 Maternal Family History: Family History (Last Reviewed 05/06/20 @ 16:[address] Ja Worthington MD) Father Cancer Mother CVA (cerebral vascular accident) Family History: No pertinent history Smoking Status: Current every day smoker Tobacco Use: Cigarettes Physical Exam Vital Signs Temp Pulse Resp BP 96.5 F L 72 18 110/74 06/03/20 13:35 06/03/20 13:35 06/03/20 13:35 06/03/20 13:35 General: Alert, Oriented x3, Cooperative, No apparent distress HEENT: Atraumatic, TM's Clear Lungs: Clear to auscultation, Normal air movement Cardiovascular: Regular rate, Regular Rhythm Psych/Mental Status: Normal Affect, Appropriate, Alert and oriented to time, place, person, mood and affect Assessment/Plan Treatment Course Number Number of HBO Treatments 30 Ordered Treatment Course Number 1 Treatment # 9 Chamber # 674-40 Chamber Type Monoplace Other - Detail 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
[2020-06-04 14:50] VITALS: BP 111/63; BP 128/87; PULSE 68; PULSE 81; RESP 16; TEMP 36.2; TEMP 36.4
--- NOTE | 2020-06-05 13:31 | PCM.HBO.PN ---
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 Progress:Today's session represents the 10th session of hyperbaric oxygen therapy, of an expected 30 such treatments. Tolerance of hyperbaric oxygen therapy: Hyperbaric oxygen therapy was administered as per the facility's protocol. Hyperbaric oxygen therapy was administered for 90 minutes at 2 ingrid, with no air breaks. Upon emergence from the hyperbaric oxygen chamber the patient had no complaints or complications. The patient's vital signs remained stable. The patient was discharged in good condition. Past Medical History Chronic Problems (Last Updated 05/31/20 @ 15:[address] 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) Bilateral lower extremity edema (Chronic) Dyslipidemia (Chronic) BPH (benign prostatic hyperplasia) (Chronic) GERD (gastroesophageal reflux disease) (Chronic) Psoriasis (Chronic) COPD (chronic obstructive pulmonary disease) (Chronic) Allergies/Adverse Reactions: Allergies No Known Allergies Allergy (Verified 05/06/20 10:31) Home Medications: Ambulatory Orders Medication Instructions Recorded Omeprazole [Prilosec] 40 mg PO DAILY 04/28/17 Acetaminophen [Tylenol] 650 mg PO Q6H PRN PRN 06/03/17 Cetirizine HCl [Zyrtec] 10 mg PO DAILY 06/03/17 albuterol sulfate 90 mcg/actuation 2 puff INHALATION Q6H PRN 05/06/20 aerosol inhaler baclofen 10 mg tablet 10 mg PO BID tab 05/06/20 ferrous sulfate 325 mg (65 mg 325 mg PO BID 05/06/20 iron) tablet gabapentin 300 mg capsule 600 mg PO TID cap 05/06/20 guaifenesin 1,200 mg tablet, 1,200 mg PO BID PRN 05/06/20 extended release 12 hr levothyroxine 75 mcg tablet 75 mcg PO DAILY tab 05/06/20 metoprolol succinate 25 mg PO 05/06/20 tablet,extended release 24 hr multivitamin 1 tab PO DAILY 05/06/20 sertraline 100 mg tablet 200 mg PO Q24H tab 05/06/20 tamsulosin 0.4 mg capsule 0.8 mg PO DAILY cap 05/06/20 Maternal Family History: Family History (Last Reviewed 05/06/20 @ 16:[address] Ja Worthington MD) Father Cancer Mother CVA (cerebral vascular accident) Family History: No pertinent history Smoking Status: Current every day smoker Tobacco Use: Cigarettes Physical Exam Vital Signs Temp Pulse Resp BP 97.2 F L 81 16 111/63 06/04/20 14:50 06/04/20 14:50 06/04/20 14:50 06/04/20 14:50 General: Alert, Oriented x3, Cooperative, No apparent distress HEENT: Atraumatic, TM's Clear Lungs: Clear to auscultation, Normal air movement Cardiovascular: Regular rate, Regular Rhythm Psych/Mental Status: Normal Affect, Appropriate, Alert and oriented to time, place, person, mood and affect Assessment/Plan Treatment Course Number Number of HBO Treatments 30 Ordered Treatment Course Number 1 Treatment # 10 Chamber # 2 Chamber Type Monoplace Other - Detail 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
[2020-06-05 15:24] VITALS: BP 100/70; BP 114/81; PULSE 79; PULSE 81; RESP 18; TEMP 36.4
--- NOTE | 2020-06-06 13:28 | PCM.HBO.PN ---
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 Progress:Today's session represents the 11th session of hyperbaric oxygen therapy, of an expected 30 such treatments. Tolerance of hyperbaric oxygen therapy: Hyperbaric oxygen therapy was administered as per the facility's protocol. Hyperbaric oxygen therapy was administered for 90 minutes at 2 ingrid, with no air breaks. Upon emergence from the hyperbaric oxygen chamber the patient had no complaints or complications. The patient's vital signs remained stable. The patient was discharged in good condition. Past Medical History Chronic Problems (Last Updated 05/31/20 @ 15:[address] 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) Bilateral lower extremity edema (Chronic) Dyslipidemia (Chronic) BPH (benign prostatic hyperplasia) (Chronic) GERD (gastroesophageal reflux disease) (Chronic) Psoriasis (Chronic) COPD (chronic obstructive pulmonary disease) (Chronic) Allergies/Adverse Reactions: Allergies No Known Allergies Allergy (Verified 05/06/20 10:31) Home Medications: Ambulatory Orders Medication Instructions Recorded Omeprazole [Prilosec] 40 mg PO DAILY 04/28/17 Acetaminophen [Tylenol] 650 mg PO Q6H PRN PRN 06/03/17 Cetirizine HCl [Zyrtec] 10 mg PO DAILY 06/03/17 albuterol sulfate 90 mcg/actuation 2 puff INHALATION Q6H PRN 05/06/20 aerosol inhaler baclofen 10 mg tablet 10 mg PO BID tab 05/06/20 ferrous sulfate 325 mg (65 mg 325 mg PO BID 05/06/20 iron) tablet gabapentin 300 mg capsule 600 mg PO TID cap 05/06/20 guaifenesin 1,200 mg tablet, 1,200 mg PO BID PRN 05/06/20 extended release 12 hr levothyroxine 75 mcg tablet 75 mcg PO DAILY tab 05/06/20 metoprolol succinate 25 mg PO 05/06/20 tablet,extended release 24 hr multivitamin 1 tab PO DAILY 05/06/20 sertraline 100 mg tablet 200 mg PO Q24H tab 05/06/20 tamsulosin 0.4 mg capsule 0.8 mg PO DAILY cap 05/06/20 Maternal Family History: Family History (Last Reviewed 05/06/20 @ 16:[address] Ja Worthington MD) Father Cancer Mother CVA (cerebral vascular accident) Family History: No pertinent history Smoking Status: Current every day smoker Tobacco Use: Cigarettes Physical Exam Vital Signs Temp Pulse Resp BP 97.5 F L 81 18 100/70 06/05/20 15:24 06/05/20 15:24 06/05/20 15:24 06/05/20 15:24 General: Alert, Oriented x3, Cooperative, No apparent distress HEENT: Atraumatic, TM's Clear Lungs: Clear to auscultation, Normal air movement Cardiovascular: Regular rate, Regular Rhythm Psych/Mental Status: Normal Affect, Appropriate, Alert and oriented to time, place, person, mood and affect Assessment/Plan Treatment Course Number Number of HBO Treatments 30 Ordered Treatment Course Number 1 Treatment # 11 Chamber # [id number] Chamber Type Monoplace Other - Detail 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
[2020-06-06 15:14] VITALS: BP 103/62; BP 120/71; PULSE 69; PULSE 81; RESP 18; TEMP 36.2; TEMP 36.3
[2020-06-07 13:07] VITALS: BP 126/80; BP 133/89; PULSE 76; PULSE 86; RESP 16; TEMP 36.1; TEMP 36.4
--- NOTE | 2020-06-07 15:48 | PCM.HBO.PN ---
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 Progress:Today's session represents the 12th session of hyperbaric oxygen therapy, of an expected 30 such treatments. Tolerance of hyperbaric oxygen therapy: Hyperbaric oxygen therapy was administered as per the facility's protocol. Hyperbaric oxygen therapy was administered for 90 minutes at 2 ingrid, with no air breaks. Upon emergence from the hyperbaric oxygen chamber the patient had no complaints or complications. The patient's vital signs remained stable. The patient was discharged in good condition. Past Medical History Chronic Problems (Last Updated 05/31/20 @ 15:[address] 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) Bilateral lower extremity edema (Chronic) Dyslipidemia (Chronic) BPH (benign prostatic hyperplasia) (Chronic) GERD (gastroesophageal reflux disease) (Chronic) Psoriasis (Chronic) COPD (chronic obstructive pulmonary disease) (Chronic) Allergies/Adverse Reactions: Allergies No Known Allergies Allergy (Verified 05/06/20 10:31) Home Medications: Ambulatory Orders Medication Instructions Recorded Omeprazole [Prilosec] 40 mg PO DAILY 04/28/17 Acetaminophen [Tylenol] 650 mg PO Q6H PRN PRN 06/03/17 Cetirizine HCl [Zyrtec] 10 mg PO DAILY 06/03/17 albuterol sulfate 90 mcg/actuation 2 puff INHALATION Q6H PRN 05/06/20 aerosol inhaler baclofen 10 mg tablet 10 mg PO BID tab 05/06/20 ferrous sulfate 325 mg (65 mg 325 mg PO BID 05/06/20 iron) tablet gabapentin 300 mg capsule 600 mg PO TID cap 05/06/20 guaifenesin 1,200 mg tablet, 1,200 mg PO BID PRN 05/06/20 extended release 12 hr levothyroxine 75 mcg tablet 75 mcg PO DAILY tab 05/06/20 metoprolol succinate 25 mg PO 05/06/20 tablet,extended release 24 hr multivitamin 1 tab PO DAILY 05/06/20 sertraline 100 mg tablet 200 mg PO Q24H tab 05/06/20 tamsulosin 0.4 mg capsule 0.8 mg PO DAILY cap 05/06/20 Maternal Family History: Family History (Last Reviewed 05/06/20 @ 16:[address] Ja Worthington MD) Father Cancer Mother CVA (cerebral vascular accident) Family History: No pertinent history Smoking Status: Current every day smoker Tobacco Use: Cigarettes Physical Exam Vital Signs Temp Pulse Resp BP 97.5 F L 86 16 126/80 H 06/07/20 13:07 06/07/20 13:07 06/07/20 13:07 06/07/20 13:07 General: Alert, Oriented x3, Cooperative, No apparent distress Psych/Mental Status: Normal Affect, Appropriate Assessment/Plan The patient appears to be tolerating hyperbaric oxygen therapy well, which will be continued as per the patient's medical plan. 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
[2020-06-10 14:32] VITALS: BP 117/80; BP 99/67; PULSE 69; PULSE 81; RESP 16; TEMP 36
--- NOTE | 2020-06-10 15:21 | PCM.HBO.PN ---
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 Progress:Today's session represents the 13th session of hyperbaric oxygen therapy, of an expected 30 such treatments. Tolerance of hyperbaric oxygen therapy: Hyperbaric oxygen therapy was administered as per the facility's protocol. Hyperbaric oxygen therapy was administered for 90 minutes at 2 ingrid, with no air breaks. Upon emergence from the hyperbaric oxygen chamber the patient had no complaints or complications. The patient's vital signs remained stable. The patient was discharged in good condition. Past Medical History Chronic Problems (Last Updated 05/31/20 @ 15:[address] 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) Bilateral lower extremity edema (Chronic) Dyslipidemia (Chronic) BPH (benign prostatic hyperplasia) (Chronic) GERD (gastroesophageal reflux disease) (Chronic) Psoriasis (Chronic) COPD (chronic obstructive pulmonary disease) (Chronic) Allergies/Adverse Reactions: Allergies No Known Allergies Allergy (Verified 05/06/20 10:31) Home Medications: Ambulatory Orders Medication Instructions Recorded Omeprazole [Prilosec] 40 mg PO DAILY 04/28/17 Acetaminophen [Tylenol] 650 mg PO Q6H PRN PRN 06/03/17 Cetirizine HCl [Zyrtec] 10 mg PO DAILY 06/03/17 albuterol sulfate 90 mcg/actuation 2 puff INHALATION Q6H PRN 05/06/20 aerosol inhaler baclofen 10 mg tablet 10 mg PO BID tab 05/06/20 ferrous sulfate 325 mg (65 mg 325 mg PO BID 05/06/20 iron) tablet gabapentin 300 mg capsule 600 mg PO TID cap 05/06/20 guaifenesin 1,200 mg tablet, 1,200 mg PO BID PRN 05/06/20 extended release 12 hr levothyroxine 75 mcg tablet 75 mcg PO DAILY tab 05/06/20 metoprolol succinate 25 mg PO 05/06/20 tablet,extended release 24 hr multivitamin 1 tab PO DAILY 05/06/20 sertraline 100 mg tablet 200 mg PO Q24H tab 05/06/20 tamsulosin 0.4 mg capsule 0.8 mg PO DAILY cap 05/06/20 Maternal Family History: Family History (Last Reviewed 05/06/20 @ 16:[address] Ja Worthington MD) Father Cancer Mother CVA (cerebral vascular accident) Family History: No pertinent history Smoking Status: Current every day smoker Tobacco Use: Cigarettes Physical Exam Vital Signs Temp Pulse Resp BP 96.8 F L 81 16 99/67 06/10/20 14:32 06/10/20 14:32 06/10/20 14:32 06/10/20 14:32 General: Alert, Cooperative, No apparent distress HEENT: Atraumatic, Normocephalic, TM's Clear Lungs: Clear to auscultation, Normal air movement, No rhonchi, No wheeze, No rales Cardiovascular: Regular rate, Regular Rhythm Psych/Mental Status: Normal Affect, Appropriate Assessment/Plan The patient appears to be tolerating hyperbaric oxygen therapy well, which will be continued as per the patient's medical plan. 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
--- NOTE | 2020-06-11 14:06 | PCM.HBO.PN ---
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 Progress:Today's session represents the 14th session of hyperbaric oxygen therapy, of an expected 30 such treatments. Tolerance of hyperbaric oxygen therapy: Hyperbaric oxygen therapy was administered as per the facility's protocol. Hyperbaric oxygen therapy was administered for 90 minutes at 2 ingrid, with no air breaks. Upon emergence from the hyperbaric oxygen chamber the patient had no complaints or complications. The patient's vital signs remained stable. The patient was discharged in good condition. Past Medical History Chronic Problems (Last Updated 05/31/20 @ 15:[address] 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) Bilateral lower extremity edema (Chronic) Dyslipidemia (Chronic) BPH (benign prostatic hyperplasia) (Chronic) GERD (gastroesophageal reflux disease) (Chronic) Psoriasis (Chronic) COPD (chronic obstructive pulmonary disease) (Chronic) Allergies/Adverse Reactions: Allergies No Known Allergies Allergy (Verified 05/06/20 10:31) Home Medications: Ambulatory Orders Medication Instructions Recorded Omeprazole [Prilosec] 40 mg PO DAILY 04/28/17 Acetaminophen [Tylenol] 650 mg PO Q6H PRN PRN 06/03/17 Cetirizine HCl [Zyrtec] 10 mg PO DAILY 06/03/17 albuterol sulfate 90 mcg/actuation 2 puff INHALATION Q6H PRN 05/06/20 aerosol inhaler baclofen 10 mg tablet 10 mg PO BID tab 05/06/20 ferrous sulfate 325 mg (65 mg 325 mg PO BID 05/06/20 iron) tablet gabapentin 300 mg capsule 600 mg PO TID cap 05/06/20 guaifenesin 1,200 mg tablet, 1,200 mg PO BID PRN 05/06/20 extended release 12 hr levothyroxine 75 mcg tablet 75 mcg PO DAILY tab 05/06/20 metoprolol succinate 25 mg PO 05/06/20 tablet,extended release 24 hr multivitamin 1 tab PO DAILY 05/06/20 sertraline 100 mg tablet 200 mg PO Q24H tab 05/06/20 tamsulosin 0.4 mg capsule 0.8 mg PO DAILY cap 05/06/20 Maternal Family History: Family History (Last Reviewed 05/06/20 @ 16:[address] Ja Worthington MD) Father Cancer Mother CVA (cerebral vascular accident) Family History: No pertinent history Smoking Status: Current every day smoker Tobacco Use: Cigarettes Physical Exam Vital Signs Temp Pulse Resp BP 96.8 F L 81 16 99/67 06/10/20 14:32 06/10/20 14:32 06/10/20 14:32 06/10/20 14:32 General: Alert, Oriented x3, Cooperative HEENT: Atraumatic, TM's Clear Lungs: Clear to auscultation, Normal air movement Cardiovascular: Regular rate, Regular Rhythm Psych/Mental Status: Normal Affect Assessment/Plan The patient appears to be tolerating hyperbaric oxygen therapy well, which will be continued as per the patient's medical plan. 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
[2020-06-11 15:38] VITALS: BP 108/71; BP 123/70; PULSE 66; PULSE 79; RESP 18; TEMP 36.1
[2020-06-13 14:06] VITALS: BP 107/68; BP 115/80; PULSE 70; PULSE 72; RESP 16; RESP 18; TEMP 36.1; TEMP 36.3
--- NOTE | 2020-06-13 15:48 | PCM.HBO.PN ---
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 Progress:Today's session represents the 15th session of hyperbaric oxygen therapy, of an expected 30 such treatments. Tolerance of hyperbaric oxygen therapy: Hyperbaric oxygen therapy was administered as per the facility's protocol. Hyperbaric oxygen therapy was administered for 90 minutes at 2 ingrid, with no air breaks. The patient tolerated hyperbaric oxygen therapy well, without complaints or complications. Upon emergence from the hyperbaric oxygen chamber, the patient's vital signs remained stable. The patient was discharged in good condition. Past Medical History Chronic Problems (Last Updated 05/31/20 @ 15:[address] 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) Bilateral lower extremity edema (Chronic) Dyslipidemia (Chronic) BPH (benign prostatic hyperplasia) (Chronic) GERD (gastroesophageal reflux disease) (Chronic) Psoriasis (Chronic) COPD (chronic obstructive pulmonary disease) (Chronic) Allergies/Adverse Reactions: Allergies No Known Allergies Allergy (Verified 05/06/20 10:31) Home Medications: Ambulatory Orders Medication Instructions Recorded Omeprazole [Prilosec] 40 mg PO DAILY 04/28/17 Acetaminophen [Tylenol] 650 mg PO Q6H PRN PRN 06/03/17 Cetirizine HCl [Zyrtec] 10 mg PO DAILY 06/03/17 albuterol sulfate 90 mcg/actuation 2 puff INHALATION Q6H PRN 05/06/20 aerosol inhaler baclofen 10 mg tablet 10 mg PO BID tab 05/06/20 ferrous sulfate 325 mg (65 mg 325 mg PO BID 05/06/20 iron) tablet gabapentin 300 mg capsule 600 mg PO TID cap 05/06/20 guaifenesin 1,200 mg tablet, 1,200 mg PO BID PRN 05/06/20 extended release 12 hr levothyroxine 75 mcg tablet 75 mcg PO DAILY tab 05/06/20 metoprolol succinate 25 mg PO 05/06/20 tablet,extended release 24 hr multivitamin 1 tab PO DAILY 05/06/20 sertraline 100 mg tablet 200 mg PO Q24H tab 05/06/20 tamsulosin 0.4 mg capsule 0.8 mg PO DAILY cap 05/06/20 Maternal Family History: Family History (Last Reviewed 05/06/20 @ 16:[address] Ja Worthington MD) Father Cancer Mother CVA (cerebral vascular accident) Family History: No pertinent history Smoking Status: Current every day smoker Tobacco Use: Cigarettes Physical Exam Vital Signs Temp Pulse Resp BP 97.4 F L 72 16 107/68 06/13/20 14:06 06/13/20 14:06 06/13/20 14:06 06/13/20 14:06 General: Alert, Oriented x3, Cooperative, No apparent distress, Well developed, Well nourished HEENT: Atraumatic, PERRLA, EOMI, Normocephalic Lungs: Normal air movement Psych/Mental Status: Normal Affect, Appropriate, Alert and oriented to time, place, person, mood and affect Assessment/Plan The patient appears to be tolerating hyperbaric oxygen therapy well, which will be continued as per the patient's medical plan. 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
--- NOTE | 2020-06-14 14:23 | PCM.HBO.PN ---
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 Progress:Today's session represents the 16th session of hyperbaric oxygen therapy, of an expected 30 such treatments. Tolerance of hyperbaric oxygen therapy: Hyperbaric oxygen therapy was administered as per the facility's protocol. Hyperbaric oxygen therapy was administered for 90 minutes at 2 ingrid, with no air breaks. The patient tolerated hyperbaric oxygen therapy well, without complaints or complications. Upon emergence from the hyperbaric oxygen chamber, the patient's vital signs remained stable. The patient was discharged in good condition. Past Medical History Chronic Problems (Last Updated 05/31/20 @ 15:[address] 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) Bilateral lower extremity edema (Chronic) Dyslipidemia (Chronic) BPH (benign prostatic hyperplasia) (Chronic) GERD (gastroesophageal reflux disease) (Chronic) Psoriasis (Chronic) COPD (chronic obstructive pulmonary disease) (Chronic) Allergies/Adverse Reactions: Allergies No Known Allergies Allergy (Verified 05/06/20 10:31) Home Medications: Ambulatory Orders Medication Instructions Recorded Omeprazole [Prilosec] 40 mg PO DAILY 04/28/17 Acetaminophen [Tylenol] 650 mg PO Q6H PRN PRN 06/03/17 Cetirizine HCl [Zyrtec] 10 mg PO DAILY 06/03/17 albuterol sulfate 90 mcg/actuation 2 puff INHALATION Q6H PRN 05/06/20 aerosol inhaler baclofen 10 mg tablet 10 mg PO BID tab 05/06/20 ferrous sulfate 325 mg (65 mg 325 mg PO BID 05/06/20 iron) tablet gabapentin 300 mg capsule 600 mg PO TID cap 05/06/20 guaifenesin 1,200 mg tablet, 1,200 mg PO BID PRN 05/06/20 extended release 12 hr levothyroxine 75 mcg tablet 75 mcg PO DAILY tab 05/06/20 metoprolol succinate 25 mg PO 05/06/20 tablet,extended release 24 hr multivitamin 1 tab PO DAILY 05/06/20 sertraline 100 mg tablet 200 mg PO Q24H tab 05/06/20 tamsulosin 0.4 mg capsule 0.8 mg PO DAILY cap 05/06/20 Maternal Family History: Family History (Last Reviewed 05/06/20 @ 16:[address] Ja Worthington MD) Father Cancer Mother CVA (cerebral vascular accident) Family History: No pertinent history Smoking Status: Current every day smoker Tobacco Use: Cigarettes Physical Exam Vital Signs Temp Pulse Resp BP 97.4 F L 72 16 107/68 06/13/20 14:06 06/13/20 14:06 06/13/20 14:06 06/13/20 14:06 General: Alert, Cooperative, No apparent distress HEENT: Atraumatic, Normocephalic, TM's Clear Lungs: Clear to auscultation, Normal air movement, No rhonchi, No wheeze, No rales Cardiovascular: Regular rate, Regular Rhythm Psych/Mental Status: Normal Affect, Appropriate Assessment/Plan The patient appears to be tolerating hyperbaric oxygen therapy well, which will be continued as per the patient's medical plan. 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
[2020-06-14 17:22] VITALS: BP 105/69; BP 110/81; PULSE 71; PULSE 76; RESP 18; TEMP 35.5; TEMP 35.9
== END 2020-06-15 23:59 ==
LOC: WC 13:00
PROVIDERS: PCP Nurse Practitioner Family; Visit Provider Nurse Practitioner
DX: L59.8 Other specified disorders of the skin and subcutaneous tissue related to radiation (principal); Y84.2 Radiological procedure and radiotherapy as the cause of abnormal reaction of the patient, or of later complication, without mention of misadventure at the time of the procedure; M27.2 Inflammatory conditions of jaws; J44.9 Chronic obstructive pulmonary disease, unspecified; K21.9 Gastro-esophageal reflux disease without esophagitis; L40.9 Psoriasis, unspecified; N40.0 Benign prostatic hyperplasia without lower urinary tract symptoms; E78.5 Hyperlipidemia, unspecified; R60.0 Localized edema; I10 Essential (primary) hypertension; Z79.899 Other long term (current) drug therapy; F17.210 Nicotine dependence, cigarettes, uncomplicated
CPT/HCPCS: 99183; G0277

== ENCOUNTER 2020-07-15 10:00 | Outpatient (RCR) | payer MEDICARE, SELFPAY ==
[2020-05-08 10:27] VITALS: BMI 24.5
[2020-06-16 00:11] VITALS: BP 105/69; PULSE 76; RESP 18; TEMP 35.5
--- NOTE | 2020-06-17 11:41 | PCM.HBO.PN ---
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 Progress:Today's session represents the 17th session of hyperbaric oxygen therapy, of an expected 30 such treatments. Tolerance of hyperbaric oxygen therapy: Hyperbaric oxygen therapy was administered as per the facility's protocol. Hyperbaric oxygen therapy was administered for 90 minutes at 2 ingrid, with no air breaks. The patient tolerated hyperbaric oxygen therapy well, without complaints or complications. Upon emergence from the hyperbaric oxygen chamber, the patient's vital signs remained stable. The patient was discharged in good condition. Past Medical History Chronic Problems (Last Updated 05/31/20 @ 15:[address] 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) Bilateral lower extremity edema (Chronic) Dyslipidemia (Chronic) BPH (benign prostatic hyperplasia) (Chronic) GERD (gastroesophageal reflux disease) (Chronic) Psoriasis (Chronic) COPD (chronic obstructive pulmonary disease) (Chronic) Allergies/Adverse Reactions: Allergies No Known Allergies Allergy (Verified 05/06/20 10:31) Home Medications: Ambulatory Orders Medication Instructions Recorded Omeprazole [Prilosec] 40 mg PO DAILY 04/28/17 Acetaminophen [Tylenol] 650 mg PO Q6H PRN PRN 06/03/17 Cetirizine HCl [Zyrtec] 10 mg PO DAILY 06/03/17 albuterol sulfate 90 mcg/actuation 2 puff INHALATION Q6H PRN 05/06/20 aerosol inhaler baclofen 10 mg tablet 10 mg PO BID tab 05/06/20 ferrous sulfate 325 mg (65 mg 325 mg PO BID 05/06/20 iron) tablet gabapentin 300 mg capsule 600 mg PO TID cap 05/06/20 guaifenesin 1,200 mg tablet, 1,200 mg PO BID PRN 05/06/20 extended release 12 hr levothyroxine 75 mcg tablet 75 mcg PO DAILY tab 05/06/20 metoprolol succinate 25 mg PO 05/06/20 tablet,extended release 24 hr multivitamin 1 tab PO DAILY 05/06/20 sertraline 100 mg tablet 200 mg PO Q24H tab 05/06/20 tamsulosin 0.4 mg capsule 0.8 mg PO DAILY cap 05/06/20 Maternal Family History: Family History (Last Reviewed 05/06/20 @ 16:[address] Ja Worthington MD) Father Cancer Mother CVA (cerebral vascular accident) Family History: No pertinent history Smoking Status: Current every day smoker Tobacco Use: Cigarettes Physical Exam Vital Signs Temp Pulse Resp BP 95.9 F L 76 18 105/69 06/16/20 00:11 06/16/20 00:11 06/16/20 00:11 06/16/20 00:11 General: Alert, Oriented x3, Cooperative, No apparent distress HEENT: Atraumatic, TM's Clear Lungs: Clear to auscultation, Normal air movement Cardiovascular: Regular rate, Regular Rhythm Psych/Mental Status: Normal Affect, Appropriate, Alert and oriented to time, place, person, mood and affect Assessment/Plan Treatment Course Number Treatment Course Number 1 Treatment # 17 Other - Detail 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
[2020-06-17 13:53] VITALS: BP 107/78; BP 126/88; PULSE 76; PULSE 89; RESP 16; TEMP 35.8; TEMP 36
[2020-06-18 12:50] VITALS: BP 110/84; BP 125/83; PULSE 63; PULSE 85; RESP 16; RESP 18; TEMP 35.9; TEMP 36.2
--- NOTE | 2020-06-18 14:19 | PCM.HBO.PN ---
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 Progress:Today's session represents the 18th session of hyperbaric oxygen therapy, of an expected 30 such treatments. Tolerance of hyperbaric oxygen therapy: Hyperbaric oxygen therapy was administered as per the facility's protocol. Hyperbaric oxygen therapy was administered for 90 minutes at 2 ingrid, with no air breaks. The patient tolerated hyperbaric oxygen therapy well, without complaints or complications. Upon emergence from the hyperbaric oxygen chamber, the patient's vital signs remained stable. The patient was discharged in good condition. Past Medical History Chronic Problems (Last Updated 05/31/20 @ 15:[address] 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) Bilateral lower extremity edema (Chronic) Dyslipidemia (Chronic) BPH (benign prostatic hyperplasia) (Chronic) GERD (gastroesophageal reflux disease) (Chronic) Psoriasis (Chronic) COPD (chronic obstructive pulmonary disease) (Chronic) Allergies/Adverse Reactions: Allergies No Known Allergies Allergy (Verified 05/06/20 10:31) Home Medications: Ambulatory Orders Medication Instructions Recorded Omeprazole [Prilosec] 40 mg PO DAILY 04/28/17 Acetaminophen [Tylenol] 650 mg PO Q6H PRN PRN 06/03/17 Cetirizine HCl [Zyrtec] 10 mg PO DAILY 06/03/17 albuterol sulfate 90 mcg/actuation 2 puff INHALATION Q6H PRN 05/06/20 aerosol inhaler baclofen 10 mg tablet 10 mg PO BID tab 05/06/20 ferrous sulfate 325 mg (65 mg 325 mg PO BID 05/06/20 iron) tablet gabapentin 300 mg capsule 600 mg PO TID cap 05/06/20 guaifenesin 1,200 mg tablet, 1,200 mg PO BID PRN 05/06/20 extended release 12 hr levothyroxine 75 mcg tablet 75 mcg PO DAILY tab 05/06/20 metoprolol succinate 25 mg PO 05/06/20 tablet,extended release 24 hr multivitamin 1 tab PO DAILY 05/06/20 sertraline 100 mg tablet 200 mg PO Q24H tab 05/06/20 tamsulosin 0.4 mg capsule 0.8 mg PO DAILY cap 05/06/20 Maternal Family History: Family History (Last Reviewed 05/06/20 @ 16:[address] Ja Worthington MD) Father Cancer Mother CVA (cerebral vascular accident) Family History: No pertinent history Smoking Status: Current every day smoker Tobacco Use: Cigarettes Physical Exam Vital Signs Temp Pulse Resp BP 96.7 F L 85 16 110/84 H 06/18/20 12:50 06/18/20 12:50 06/18/20 12:50 06/18/20 12:50 General: Alert, Oriented x3, Cooperative, No apparent distress, Well developed, Well nourished HEENT: Atraumatic, PERRLA, EOMI, Normocephalic Lungs: Normal air movement Psych/Mental Status: Normal Affect, Appropriate, Alert and oriented to time, place, person, mood and affect Assessment/Plan The patient appears to be tolerating hyperbaric oxygen therapy well, which will be continued as per the patient's medical plan. 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
--- NOTE | 2020-06-19 12:11 | PCM.HBO.PN ---
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 Progress:Today's session represents the 19th session of hyperbaric oxygen therapy, of an expected 30 such treatments. Tolerance of hyperbaric oxygen therapy: Hyperbaric oxygen therapy was administered as per the facility's protocol. Hyperbaric oxygen therapy was administered for 90 minutes at 2 ingrid, with no air breaks. The patient tolerated hyperbaric oxygen therapy well, without complaints or complications. Upon emergence from the hyperbaric oxygen chamber, the patient's vital signs remained stable. The patient was discharged in good condition. Past Medical History Chronic Problems (Last Updated 05/31/20 @ 15:[address] 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) Bilateral lower extremity edema (Chronic) Dyslipidemia (Chronic) BPH (benign prostatic hyperplasia) (Chronic) GERD (gastroesophageal reflux disease) (Chronic) Psoriasis (Chronic) COPD (chronic obstructive pulmonary disease) (Chronic) Allergies/Adverse Reactions: Allergies No Known Allergies Allergy (Verified 05/06/20 10:31) Home Medications: Ambulatory Orders Medication Instructions Recorded Omeprazole [Prilosec] 40 mg PO DAILY 04/28/17 Acetaminophen [Tylenol] 650 mg PO Q6H PRN PRN 06/03/17 Cetirizine HCl [Zyrtec] 10 mg PO DAILY 06/03/17 albuterol sulfate 90 mcg/actuation 2 puff INHALATION Q6H PRN 05/06/20 aerosol inhaler baclofen 10 mg tablet 10 mg PO BID tab 05/06/20 ferrous sulfate 325 mg (65 mg 325 mg PO BID 05/06/20 iron) tablet gabapentin 300 mg capsule 600 mg PO TID cap 05/06/20 guaifenesin 1,200 mg tablet, 1,200 mg PO BID PRN 05/06/20 extended release 12 hr levothyroxine 75 mcg tablet 75 mcg PO DAILY tab 05/06/20 metoprolol succinate 25 mg PO 05/06/20 tablet,extended release 24 hr multivitamin 1 tab PO DAILY 05/06/20 sertraline 100 mg tablet 200 mg PO Q24H tab 05/06/20 tamsulosin 0.4 mg capsule 0.8 mg PO DAILY cap 05/06/20 Maternal Family History: Family History (Last Reviewed 05/06/20 @ 16:[address] Ja Worthington MD) Father Cancer Mother CVA (cerebral vascular accident) Family History: No pertinent history Smoking Status: Current every day smoker Tobacco Use: Cigarettes Physical Exam Vital Signs Temp Pulse Resp BP 96.7 F L 85 16 110/84 H 06/18/20 12:50 06/18/20 12:50 06/18/20 12:50 06/18/20 12:50 Assessment/Plan The patient appears to be tolerating hyperbaric oxygen therapy well, which will be continued as per the patient's medical plan. 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
[2020-06-19 15:12] VITALS: BP 105/73; BP 131/89; PULSE 63; PULSE 83; RESP 18; TEMP 35.5; TEMP 36.3
--- NOTE | 2020-06-24 13:40 | PCM.HBO.PN ---
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 Progress:Today's session represents the 20th session of hyperbaric oxygen therapy, of an expected 30 such treatments. Tolerance of hyperbaric oxygen therapy: Hyperbaric oxygen therapy was administered as per the facility's protocol. Hyperbaric oxygen therapy was administered for 90 minutes at 2 ingrid, with no air breaks. The patient tolerated hyperbaric oxygen therapy well, without complaints or complications. Upon emergence from the hyperbaric oxygen chamber, the patient's vital signs remained stable. The patient was discharged in good condition. Past Medical History Chronic Problems (Last Updated 05/31/20 @ 15:[address] 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) Bilateral lower extremity edema (Chronic) Dyslipidemia (Chronic) BPH (benign prostatic hyperplasia) (Chronic) GERD (gastroesophageal reflux disease) (Chronic) Psoriasis (Chronic) COPD (chronic obstructive pulmonary disease) (Chronic) Allergies/Adverse Reactions: Allergies No Known Allergies Allergy (Verified 05/06/20 10:31) Home Medications: Ambulatory Orders Medication Instructions Recorded Omeprazole [Prilosec] 40 mg PO DAILY 04/28/17 Acetaminophen [Tylenol] 650 mg PO Q6H PRN PRN 06/03/17 Cetirizine HCl [Zyrtec] 10 mg PO DAILY 06/03/17 albuterol sulfate 90 mcg/actuation 2 puff INHALATION Q6H PRN 05/06/20 aerosol inhaler baclofen 10 mg tablet 10 mg PO BID tab 05/06/20 ferrous sulfate 325 mg (65 mg 325 mg PO BID 05/06/20 iron) tablet gabapentin 300 mg capsule 600 mg PO TID cap 05/06/20 guaifenesin 1,200 mg tablet, 1,200 mg PO BID PRN 05/06/20 extended release 12 hr levothyroxine 75 mcg tablet 75 mcg PO DAILY tab 05/06/20 metoprolol succinate 25 mg PO 05/06/20 tablet,extended release 24 hr multivitamin 1 tab PO DAILY 05/06/20 sertraline 100 mg tablet 200 mg PO Q24H tab 09/21/20 tamsulosin 0.4 mg capsule 0.8 mg PO DAILY cap 05/06/20 Maternal Family History: Family History (Last Reviewed 05/06/20 @ 16:[address] Ja Worthington MD) Father Cancer Mother CVA (cerebral vascular accident) Family History: No pertinent history Smoking Status: Current every day smoker Tobacco Use: Cigarettes Physical Exam Vital Signs Temp Pulse Resp BP 95.9 F L 83 18 105/73 06/19/20 15:12 06/19/20 15:12 06/19/20 15:12 06/19/20 15:12 General: Alert, Oriented x3, Cooperative, No apparent distress HEENT: Atraumatic, TM's Clear Lungs: Clear to auscultation, Normal air movement Cardiovascular: Regular rate, Regular Rhythm Psych/Mental Status: Normal Affect, Appropriate, Alert and oriented to time, place, person, mood and affect Assessment/Plan Treatment Course Number Number of HBO Treatments 30 Ordered Treatment Course Number 1 Treatment # 20 Chamber # [id number] Chamber Type Monoplace Other - Detail 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
[2020-06-24 13:53] VITALS: BP 119/88; BP 123/32; PULSE 61; RESP 16; RESP 18; TEMP 35.9; TEMP 36.4
--- NOTE | 2020-06-25 13:15 | PCM.HBO.PN ---
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 Progress:Today's session represents the 21st session of hyperbaric oxygen therapy, of an expected 30 such treatments. Tolerance of hyperbaric oxygen therapy: Hyperbaric oxygen therapy was administered as per the facility's protocol. Hyperbaric oxygen therapy was administered for 90 minutes at 2 ingrid, with no air breaks. The patient tolerated hyperbaric oxygen therapy well, without complaints or complications. Upon emergence from the hyperbaric oxygen chamber, the patient's vital signs remained stable. The patient was discharged in good condition. Past Medical History Chronic Problems (Last Updated 05/31/20 @ 15:[address] 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) Bilateral lower extremity edema (Chronic) Dyslipidemia (Chronic) BPH (benign prostatic hyperplasia) (Chronic) GERD (gastroesophageal reflux disease) (Chronic) Psoriasis (Chronic) COPD (chronic obstructive pulmonary disease) (Chronic) Allergies/Adverse Reactions: Allergies No Known Allergies Allergy (Verified 05/06/20 10:31) Home Medications: Ambulatory Orders Medication Instructions Recorded Omeprazole [Prilosec] 40 mg PO DAILY 04/28/17 Acetaminophen [Tylenol] 650 mg PO Q6H PRN PRN 06/03/17 Cetirizine HCl [Zyrtec] 10 mg PO DAILY 06/03/17 albuterol sulfate 90 mcg/actuation 2 puff INHALATION Q6H PRN 05/06/20 aerosol inhaler baclofen 10 mg tablet 10 mg PO BID tab 05/06/20 ferrous sulfate 325 mg (65 mg 325 mg PO BID 05/06/20 iron) tablet gabapentin 300 mg capsule 600 mg PO TID cap 05/06/20 guaifenesin 1,200 mg tablet, 1,200 mg PO BID PRN 05/06/20 extended release 12 hr levothyroxine 75 mcg tablet 75 mcg PO DAILY tab 05/06/20 metoprolol succinate 25 mg PO 05/06/20 tablet,extended release 24 hr multivitamin 1 tab PO DAILY 05/06/20 sertraline 100 mg tablet 200 mg PO Q24H tab 09/21/20 tamsulosin 0.4 mg capsule 0.8 mg PO DAILY cap 05/06/20 Maternal Family History: Family History (Last Reviewed 05/06/20 @ 16:[address] Ja Worthington MD) Father Cancer Mother CVA (cerebral vascular accident) Family History: No pertinent history Smoking Status: Current every day smoker Tobacco Use: Cigarettes Physical Exam Vital Signs Temp Pulse Resp BP 97.6 F L 61 18 123/32 H 06/24/20 13:53 06/24/20 13:53 06/24/20 13:53 06/24/20 13:53 General: Alert, Oriented x3, Cooperative, No apparent distress HEENT: Atraumatic, TM's Clear Lungs: Clear to auscultation, Normal air movement Cardiovascular: Regular rate, Regular Rhythm Psych/Mental Status: Normal Affect, Appropriate, Alert and oriented to time, place, person, mood and affect Assessment/Plan Treatment Course Number Number of HBO Treatments 30 Ordered Treatment Course Number 1 Treatment # 21 Chamber # [id number] Chamber Type Monoplace Other - Detail 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
[2020-06-25 15:23] VITALS: BP 108/69; BP 110/73; PULSE 72; PULSE 74; RESP 16; TEMP 36; TEMP 36.3
[2020-06-26 13:33] VITALS: BP 110/76; BP 138/99; PULSE 70; PULSE 75; RESP 16; TEMP 36.6
--- NOTE | 2020-06-26 13:56 | PCM.HBO.PN ---
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 Progress:Today's session represents the 22nd session of hyperbaric oxygen therapy, of an expected 30 such treatments. Tolerance of hyperbaric oxygen therapy: Hyperbaric oxygen therapy was administered as per the facility's protocol. Hyperbaric oxygen therapy was administered for 90 minutes at 2 ingrid, with no air breaks. The patient tolerated hyperbaric oxygen therapy well, without complaints or complications. Upon emergence from the hyperbaric oxygen chamber, the patient's vital signs remained stable. The patient was discharged in good condition. Past Medical History Chronic Problems (Last Updated 05/31/20 @ 15:[address] 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) Bilateral lower extremity edema (Chronic) Dyslipidemia (Chronic) BPH (benign prostatic hyperplasia) (Chronic) GERD (gastroesophageal reflux disease) (Chronic) Psoriasis (Chronic) COPD (chronic obstructive pulmonary disease) (Chronic) Allergies/Adverse Reactions: Allergies No Known Allergies Allergy (Verified 05/06/20 10:31) Home Medications: Ambulatory Orders Medication Instructions Recorded Omeprazole [Prilosec] 40 mg PO DAILY 04/28/17 Acetaminophen [Tylenol] 650 mg PO Q6H PRN PRN 06/03/17 Cetirizine HCl [Zyrtec] 10 mg PO DAILY 06/03/17 albuterol sulfate 90 mcg/actuation 2 puff INHALATION Q6H PRN 05/06/20 aerosol inhaler baclofen 10 mg tablet 10 mg PO BID tab 05/06/20 ferrous sulfate 325 mg (65 mg 325 mg PO BID 05/06/20 iron) tablet gabapentin 300 mg capsule 600 mg PO TID cap 05/06/20 guaifenesin 1,200 mg tablet, 1,200 mg PO BID PRN 05/06/20 extended release 12 hr levothyroxine 75 mcg tablet 75 mcg PO DAILY tab 05/06/20 metoprolol succinate 25 mg PO 05/06/20 tablet,extended release 24 hr multivitamin 1 tab PO DAILY 05/06/20 sertraline 100 mg tablet 200 mg PO Q24H tab 05/06/20 tamsulosin 0.4 mg capsule 0.8 mg PO DAILY cap 05/06/20 Maternal Family History: Family History (Last Reviewed 05/06/20 @ 16:[address] Ja Worthington MD) Father Cancer Mother CVA (cerebral vascular accident) Family History: No pertinent history Smoking Status: Current every day smoker Tobacco Use: Cigarettes Physical Exam Vital Signs Temp Pulse Resp BP 97.8 F 75 16 110/76 06/26/20 13:33 06/26/20 13:33 06/26/20 13:33 06/26/20 13:33 General: Alert, Oriented x3, Cooperative, No apparent distress HEENT: Atraumatic, TM's Clear Lungs: Clear to auscultation Cardiovascular: Regular rate, Regular Rhythm Psych/Mental Status: Normal Affect, Appropriate, Alert and oriented to time, place, person, mood and affect Assessment/Plan Treatment Course Number Number of HBO Treatments 30 Ordered Treatment Course Number 1 Treatment # 22 Chamber # 2 Chamber Type Monoplace Other - Detail 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
[2020-06-27 13:46] VITALS: BP 111/72; BP 97/63; PULSE 67; PULSE 79; RESP 18; TEMP 36.1
--- NOTE | 2020-06-27 15:37 | PCM.HBO.PN ---
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 Progress:Today's session represents the 23rd session of hyperbaric oxygen therapy, of an expected 30 such treatments. Tolerance of hyperbaric oxygen therapy: Hyperbaric oxygen therapy was administered as per the facility's protocol. Hyperbaric oxygen therapy was administered for 90 minutes at 2 ingrid, with no air breaks. The patient tolerated hyperbaric oxygen therapy well, without complaints or complications. Upon emergence from the hyperbaric oxygen chamber, the patient's vital signs remained stable. The patient was discharged in good condition. Past Medical History Chronic Problems (Last Updated 05/31/20 @ 15:[address] 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) Bilateral lower extremity edema (Chronic) Dyslipidemia (Chronic) BPH (benign prostatic hyperplasia) (Chronic) GERD (gastroesophageal reflux disease) (Chronic) Psoriasis (Chronic) COPD (chronic obstructive pulmonary disease) (Chronic) Allergies/Adverse Reactions: Allergies No Known Allergies Allergy (Verified 05/06/20 10:31) Home Medications: Ambulatory Orders Medication Instructions Recorded Omeprazole [Prilosec] 40 mg PO DAILY 04/28/17 Acetaminophen [Tylenol] 650 mg PO Q6H PRN PRN 06/03/17 Cetirizine HCl [Zyrtec] 10 mg PO DAILY 06/03/17 albuterol sulfate 90 mcg/actuation 2 puff INHALATION Q6H PRN 05/06/20 aerosol inhaler baclofen 10 mg tablet 10 mg PO BID tab 05/06/20 ferrous sulfate 325 mg (65 mg 325 mg PO BID 05/06/20 iron) tablet gabapentin 300 mg capsule 600 mg PO TID cap 05/06/20 guaifenesin 1,200 mg tablet, 1,200 mg PO BID PRN 05/06/20 extended release 12 hr levothyroxine 75 mcg tablet 75 mcg PO DAILY tab 05/06/20 metoprolol succinate 25 mg PO 05/06/20 tablet,extended release 24 hr multivitamin 1 tab PO DAILY 05/06/20 sertraline 100 mg tablet 200 mg PO Q24H tab 05/06/20 tamsulosin 0.4 mg capsule 0.8 mg PO DAILY cap 05/06/20 Maternal Family History: Family History (Last Reviewed 05/06/20 @ 16:[address] Ja Worthington MD) Father Cancer Mother CVA (cerebral vascular accident) Family History: No pertinent history Smoking Status: Current every day smoker Tobacco Use: Cigarettes Physical Exam Vital Signs Temp Pulse Resp BP 97.0 F L 67 18 97/63 06/27/20 13:46 06/27/20 13:46 06/27/20 13:46 06/27/20 13:46 General: Alert, Oriented x3, Cooperative, No apparent distress HEENT: Atraumatic, PERRLA, TM's Clear Lungs: Clear to auscultation, Normal air movement, No rhonchi, No wheeze, No rales Cardiovascular: Regular rate, Regular Rhythm, Normal S1, Normal S2 Psych/Mental Status: Normal Affect, Appropriate Assessment/Plan The patient appears to be tolerating hyperbaric oxygen therapy well, which will be continued as per the patient's medical plan. 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
[2020-07-08 11:30] VITALS: BP 137/76; BP 144/84; PULSE 56; PULSE 65; RESP 16; RESP 17; TEMP 35.8; TEMP 36
--- NOTE | 2020-07-08 13:37 | PCM.HBO.PN ---
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 Progress:Today's session represents the 24th session of hyperbaric oxygen therapy, of an expected 30 such treatments. Tolerance of hyperbaric oxygen therapy: Hyperbaric oxygen therapy was administered as per the facility's protocol. Hyperbaric oxygen therapy was administered for 90 minutes at 2 ingrid, with no air breaks. The patient tolerated hyperbaric oxygen therapy well, without complaints or complications. Upon emergence from the hyperbaric oxygen chamber, the patient's vital signs remained stable. The patient was discharged in good condition. Past Medical History Chronic Problems (Last Updated 05/31/20 @ 15:[address] 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) Bilateral lower extremity edema (Chronic) Dyslipidemia (Chronic) BPH (benign prostatic hyperplasia) (Chronic) GERD (gastroesophageal reflux disease) (Chronic) Psoriasis (Chronic) COPD (chronic obstructive pulmonary disease) (Chronic) Allergies/Adverse Reactions: Allergies No Known Allergies Allergy (Verified 05/06/20 10:31) Home Medications: Ambulatory Orders Medication Instructions Recorded Omeprazole [Prilosec] 40 mg PO DAILY 04/28/17 Acetaminophen [Tylenol] 650 mg PO Q6H PRN PRN 06/03/17 Cetirizine HCl [Zyrtec] 10 mg PO DAILY 06/03/17 albuterol sulfate 90 mcg/actuation 2 puff INHALATION Q6H PRN 05/06/20 aerosol inhaler baclofen 10 mg tablet 10 mg PO BID tab 05/06/20 ferrous sulfate 325 mg (65 mg 325 mg PO BID 05/06/20 iron) tablet gabapentin 300 mg capsule 600 mg PO TID cap 05/06/20 guaifenesin 1,200 mg tablet, 1,200 mg PO BID PRN 05/06/20 extended release 12 hr levothyroxine 75 mcg tablet 75 mcg PO DAILY tab 05/06/20 metoprolol succinate 25 mg PO 05/06/20 tablet,extended release 24 hr multivitamin 1 tab PO DAILY 05/06/20 sertraline 100 mg tablet 200 mg PO Q24H tab 05/06/20 tamsulosin 0.4 mg capsule 0.8 mg PO DAILY cap 05/06/20 Maternal Family History: Family History (Last Reviewed 05/06/20 @ 16:[address] Ja Worthington MD) Father Cancer Mother CVA (cerebral vascular accident) Family History: No pertinent history Smoking Status: Current every day smoker Tobacco Use: Cigarettes Physical Exam Vital Signs Temp Pulse Resp BP 96.4 F L 56 L 16 137/76 H 07/08/20 11:30 07/08/20 11:30 07/08/20 11:30 07/08/20 11:30 General: Alert, Oriented x3, Cooperative, No apparent distress HEENT: Atraumatic, TM's Clear Lungs: Clear to auscultation, Normal air movement Cardiovascular: Regular rate, Regular Rhythm Psych/Mental Status: Normal Affect, Appropriate, Alert and oriented to time, place, person, mood and affect Assessment/Plan Treatment Course Number Number of HBO Treatments 30 Ordered Treatment Course Number 1 Treatment # 24 Chamber # 2 Chamber Type Monoplace Other - Detail 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
[2020-07-09 10:30] VITALS: BP 122/79; BP 133/86; PULSE 58; PULSE 61; RESP 16; RESP 17; TEMP 36.1
--- NOTE | 2020-07-09 13:24 | PCM.HBO.PN ---
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 Progress:Today's session represents the 25th session of hyperbaric oxygen therapy, of an expected 30 such treatments. Tolerance of hyperbaric oxygen therapy: Hyperbaric oxygen therapy was administered as per the facility's protocol. Hyperbaric oxygen therapy was administered for 90 minutes at 2 ingrid, with no air breaks. The patient tolerated hyperbaric oxygen therapy well, without complaints or complications. Upon emergence from the hyperbaric oxygen chamber, the patient's vital signs remained stable. The patient was discharged in good condition. Past Medical History Chronic Problems (Last Updated 05/31/20 @ 15:[address] 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) Bilateral lower extremity edema (Chronic) Dyslipidemia (Chronic) BPH (benign prostatic hyperplasia) (Chronic) GERD (gastroesophageal reflux disease) (Chronic) Psoriasis (Chronic) COPD (chronic obstructive pulmonary disease) (Chronic) Allergies/Adverse Reactions: Allergies No Known Allergies Allergy (Verified 05/06/20 10:31) Home Medications: Ambulatory Orders Medication Instructions Recorded Omeprazole [Prilosec] 40 mg PO DAILY 04/28/17 Acetaminophen [Tylenol] 650 mg PO Q6H PRN PRN 06/03/17 Cetirizine HCl [Zyrtec] 10 mg PO DAILY 06/03/17 albuterol sulfate 90 mcg/actuation 2 puff INHALATION Q6H PRN 05/06/20 aerosol inhaler baclofen 10 mg tablet 10 mg PO BID tab 05/06/20 ferrous sulfate 325 mg (65 mg 325 mg PO BID 05/06/20 iron) tablet gabapentin 300 mg capsule 600 mg PO TID cap 05/06/20 guaifenesin 1,200 mg tablet, 1,200 mg PO BID PRN 05/06/20 extended release 12 hr levothyroxine 75 mcg tablet 75 mcg PO DAILY tab 05/06/20 metoprolol succinate 25 mg PO 05/06/20 tablet,extended release 24 hr multivitamin 1 tab PO DAILY 05/06/20 sertraline 100 mg tablet 200 mg PO Q24H tab 09/21/20 tamsulosin 0.4 mg capsule 0.8 mg PO DAILY cap 05/06/20 Maternal Family History: Family History (Last Reviewed 05/06/20 @ 16:[address] Ja Worthington MD) Father Cancer Mother CVA (cerebral vascular accident) Family History: No pertinent history Smoking Status: Current every day smoker Tobacco Use: Cigarettes Physical Exam Vital Signs Temp Pulse Resp BP 96.9 F L 58 L 16 122/79 H 07/09/20 10:30 07/09/20 10:30 07/09/20 10:30 07/09/20 10:30 General: Alert, Oriented x3, Cooperative, No apparent distress, Well developed, Well nourished HEENT: Atraumatic, PERRLA, EOMI, Normocephalic Lungs: Normal air movement Psych/Mental Status: Normal Affect, Appropriate, Alert and oriented to time, place, person, mood and affect Assessment/Plan Patient appears to be tolerating hyperbaric oxygen therapy well, which will be continued as per the patient's medical plan. 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
[2020-07-10 10:42] VITALS: BP 101/72; BP 137/95; PULSE 73; PULSE 74; RESP 16; TEMP 35.6; TEMP 35.7
--- NOTE | 2020-07-10 12:08 | PCM.HBO.PN ---
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 Progress:Today's session represents the 26th session of hyperbaric oxygen therapy, of an expected 30 such treatments. Tolerance of hyperbaric oxygen therapy: Hyperbaric oxygen therapy was administered as per the facility's protocol. Hyperbaric oxygen therapy was administered for 90 minutes at 2 ingrid, with no air breaks. The patient tolerated hyperbaric oxygen therapy well, without complaints or complications. Upon emergence from the hyperbaric oxygen chamber, the patient's vital signs remained stable. The patient was discharged in good condition. Past Medical History Chronic Problems (Last Updated 05/31/20 @ 15:[address] 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) Bilateral lower extremity edema (Chronic) Dyslipidemia (Chronic) BPH (benign prostatic hyperplasia) (Chronic) GERD (gastroesophageal reflux disease) (Chronic) Psoriasis (Chronic) COPD (chronic obstructive pulmonary disease) (Chronic) Allergies/Adverse Reactions: Allergies No Known Allergies Allergy (Verified 05/06/20 10:31) Home Medications: Ambulatory Orders Medication Instructions Recorded Omeprazole [Prilosec] 40 mg PO DAILY 04/28/17 Acetaminophen [Tylenol] 650 mg PO Q6H PRN PRN 06/03/17 Cetirizine HCl [Zyrtec] 10 mg PO DAILY 06/03/17 albuterol sulfate 90 mcg/actuation 2 puff INHALATION Q6H PRN 05/06/20 aerosol inhaler baclofen 10 mg tablet 10 mg PO BID tab 05/06/20 ferrous sulfate 325 mg (65 mg 325 mg PO BID 05/06/20 iron) tablet gabapentin 300 mg capsule 600 mg PO TID cap 05/06/20 guaifenesin 1,200 mg tablet, 1,200 mg PO BID PRN 05/06/20 extended release 12 hr levothyroxine 75 mcg tablet 75 mcg PO DAILY tab 05/06/20 metoprolol succinate 25 mg PO 05/06/20 tablet,extended release 24 hr multivitamin 1 tab PO DAILY 05/06/20 sertraline 100 mg tablet 200 mg PO Q24H tab 05/06/20 tamsulosin 0.4 mg capsule 0.8 mg PO DAILY cap 05/06/20 Maternal Family History: Family History (Last Reviewed 05/06/20 @ 16:[address] Ja Worthington MD) Father Cancer Mother CVA (cerebral vascular accident) Family History: No pertinent history Smoking Status: Current every day smoker Tobacco Use: Cigarettes Physical Exam Vital Signs Temp Pulse Resp BP 96.3 F L 74 16 101/72 07/10/20 10:42 07/10/20 10:42 07/10/20 10:42 07/10/20 10:42 Assessment/Plan Patient appears to be tolerating hyperbaric oxygen therapy well, which will be continued as per the patient's medical plan. 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
[2020-07-12 10:49] VITALS: BP 116/76; BP 121/80; PULSE 65; PULSE 72; RESP 16; RESP 18; TEMP 35.8
--- NOTE | 2020-07-12 13:05 | PCM.HBO.PN ---
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 Progress:Today's session represents the 27th session of hyperbaric oxygen therapy, of an expected 30 such treatments. Tolerance of hyperbaric oxygen therapy: Hyperbaric oxygen therapy was administered as per the facility's protocol. Hyperbaric oxygen therapy was administered for 90 minutes at 2 ingrid, with no air breaks. The patient tolerated hyperbaric oxygen therapy well, without complaints or complications. Upon emergence from the hyperbaric oxygen chamber, the patient's vital signs remained stable. The patient was discharged in good condition. Past Medical History Chronic Problems (Last Updated 05/31/20 @ 15:[address] 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) Bilateral lower extremity edema (Chronic) Dyslipidemia (Chronic) BPH (benign prostatic hyperplasia) (Chronic) GERD (gastroesophageal reflux disease) (Chronic) Psoriasis (Chronic) COPD (chronic obstructive pulmonary disease) (Chronic) Allergies/Adverse Reactions: Allergies No Known Allergies Allergy (Verified 05/06/20 10:31) Home Medications: Ambulatory Orders Medication Instructions Recorded Omeprazole [Prilosec] 40 mg PO DAILY 04/28/17 Acetaminophen [Tylenol] 650 mg PO Q6H PRN PRN 06/03/17 Cetirizine HCl [Zyrtec] 10 mg PO DAILY 06/03/17 albuterol sulfate 90 mcg/actuation 2 puff INHALATION Q6H PRN 05/06/20 aerosol inhaler baclofen 10 mg tablet 10 mg PO BID tab 05/06/20 ferrous sulfate 325 mg (65 mg 325 mg PO BID 05/06/20 iron) tablet gabapentin 300 mg capsule 600 mg PO TID cap 05/06/20 guaifenesin 1,200 mg tablet, 1,200 mg PO BID PRN 05/06/20 extended release 12 hr levothyroxine 75 mcg tablet 75 mcg PO DAILY tab 05/06/20 metoprolol succinate 25 mg PO 05/06/20 tablet,extended release 24 hr multivitamin 1 tab PO DAILY 05/06/20 sertraline 100 mg tablet 200 mg PO Q24H tab 05/06/20 tamsulosin 0.4 mg capsule 0.8 mg PO DAILY cap 05/06/20 Maternal Family History: Family History (Last Reviewed 05/06/20 @ 16:[address] Ja Worthington MD) Father Cancer Mother CVA (cerebral vascular accident) Family History: No pertinent history Smoking Status: Current every day smoker Tobacco Use: Cigarettes Physical Exam Vital Signs Temp Pulse Resp BP 96.4 F L 72 18 116/76 07/12/20 10:49 07/12/20 10:49 07/12/20 10:49 07/12/20 10:49 General: Alert, Oriented x3, Cooperative, No apparent distress Psych/Mental Status: Normal Affect, Appropriate Assessment/Plan Patient appears to be tolerating hyperbaric oxygen therapy well, which will be continued as per the patient's medical plan. 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
[2020-07-15 11:17] VITALS: BP 136/93; BP 151/88; PULSE 60; PULSE 71; RESP 16; RESP 17; TEMP 35.8; TEMP 36.2
--- NOTE | 2020-07-15 12:14 | PCM.HBO.PN ---
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 Progress:Today's session represents the 28th session of hyperbaric oxygen therapy, of an expected 30 such treatments. Tolerance of hyperbaric oxygen therapy: Hyperbaric oxygen therapy was administered as per the facility's protocol. Hyperbaric oxygen therapy was administered for 90 minutes at 2 ingrid, with no air breaks. The patient tolerated hyperbaric oxygen therapy well, without complaints or complications. Upon emergence from the hyperbaric oxygen chamber, the patient's vital signs remained stable. The patient was discharged in good condition. Past Medical History Chronic Problems (Last Updated 05/31/20 @ 15:[address] 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) Bilateral lower extremity edema (Chronic) Dyslipidemia (Chronic) BPH (benign prostatic hyperplasia) (Chronic) GERD (gastroesophageal reflux disease) (Chronic) Psoriasis (Chronic) COPD (chronic obstructive pulmonary disease) (Chronic) Allergies/Adverse Reactions: Allergies No Known Allergies Allergy (Verified 05/06/20 10:31) Home Medications: Ambulatory Orders Medication Instructions Recorded Omeprazole [Prilosec] 40 mg PO DAILY 04/28/17 Acetaminophen [Tylenol] 650 mg PO Q6H PRN PRN 06/03/17 Cetirizine HCl [Zyrtec] 10 mg PO DAILY 06/03/17 albuterol sulfate 90 mcg/actuation 2 puff INHALATION Q6H PRN 05/06/20 aerosol inhaler baclofen 10 mg tablet 10 mg PO BID tab 05/06/20 ferrous sulfate 325 mg (65 mg 325 mg PO BID 05/06/20 iron) tablet gabapentin 300 mg capsule 600 mg PO TID cap 05/06/20 guaifenesin 1,200 mg tablet, 1,200 mg PO BID PRN 05/06/20 extended release 12 hr levothyroxine 75 mcg tablet 75 mcg PO DAILY tab 05/06/20 metoprolol succinate 25 mg PO 05/06/20 tablet,extended release 24 hr multivitamin 1 tab PO DAILY 05/06/20 sertraline 100 mg tablet 200 mg PO Q24H tab 05/06/20 tamsulosin 0.4 mg capsule 0.8 mg PO DAILY cap 05/06/20 Maternal Family History: Family History (Last Reviewed 05/06/20 @ 16:[address] Ja Worthington MD) Father Cancer Mother CVA (cerebral vascular accident) Family History: No pertinent history Smoking Status: Current every day smoker Tobacco Use: Cigarettes Physical Exam Vital Signs Temp Pulse Resp BP 96.5 F L 71 16 151/88 H 07/15/20 11:17 07/15/20 11:17 07/15/20 11:17 07/15/20 11:17 General: Alert, Oriented x3, Cooperative, No apparent distress HEENT: Atraumatic, TM's Clear Lungs: Clear to auscultation, Normal air movement Cardiovascular: Regular rate, Regular Rhythm Psych/Mental Status: Normal Affect, Appropriate, Alert and oriented to time, place, person, mood and affect Assessment/Plan Treatment Course Number Number of HBO Treatments 30 Ordered Treatment Course Number 1 Treatment # 28 Chamber # 2 Chamber Type Monoplace Other - Detail 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
== END 2020-07-15 23:59 ==
LOC: WC 10:00
PROVIDERS: PCP Nurse Practitioner Family; Visit Provider Nurse Practitioner
DX: M27.2 Inflammatory conditions of jaws (principal); I10 Essential (primary) hypertension; E78.5 Hyperlipidemia, unspecified; N40.0 Benign prostatic hyperplasia without lower urinary tract symptoms; K21.9 Gastro-esophageal reflux disease without esophagitis; J44.9 Chronic obstructive pulmonary disease, unspecified; H35.719 Central serous chorioretinopathy, unspecified eye; C09.9 Malignant neoplasm of tonsil, unspecified; L40.9 Psoriasis, unspecified; F17.210 Nicotine dependence, cigarettes, uncomplicated
CPT/HCPCS: 99183; G0277

== ENCOUNTER 2020-07-17 10:00 | Outpatient (RCR) | payer MEDICARE, SELFPAY ==
[2020-05-08 10:27] VITALS: BMI 24.5
[2020-07-16 00:14] VITALS: BP 136/93; PULSE 60; RESP 17; TEMP 36.2
[2020-07-16 10:31] VITALS: BP 113/78; BP 155/99; PULSE 61; PULSE 75; RESP 16; TEMP 36.1
--- NOTE | 2020-07-16 14:21 | HBO.PN.PCM_ITS ---
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 Progress: Today's session represents the 29th session of hyperbaric oxygen therapy of a planned 30 such sessions. Tolerance of hyperbaric oxygen therapy: Hyperbaric oxygen therapy was administered as per the facility's protocol. Hyperbaric oxygen therapy was ad ministered for 90 minutes at 2 ingrid, with no air breaks. Patient tolerated hyperbaric oxygen therapy well, without complaints or complications. Upon emergence from the hyperbaric oxygen chamber, the patient's vital signs remained stable. The patient was discharged in good condition. Past Medical History Chronic Problems (Last Updated 05/31/20 @ 15:[address] 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) Bilateral lower extremity edema (Chronic) Dyslipidemia (Chronic) BPH (benign prostatic hyperplasia) (Chronic) GERD (gastroesophageal reflux disease) (Chronic) Psoriasis (Chronic) COPD (chronic obstructive pulmonary disease) (Chronic) Allergies/Adverse Reactions: Allergies No Known Allergies Allergy (Verified 05/06/20 10:31) Home Medications: Ambulatory Orders Medication Instructions Recorded Omeprazole [Prilosec] 40 mg PO DAILY 04/28/17 Acetaminophen [Tylenol] 650 mg PO Q6H PRN PRN 06/03/17 Cetirizine HCl [Zyrtec] 10 mg PO DAILY 06/03/17 albuterol sulfate 90 mcg/actuation 2 puff INHALATION Q6H PRN 05/06/20 aerosol inhaler baclofen 10 mg tablet 10 mg PO BID tab 05/06/20 ferrous sulfate 325 mg (65 mg 325 mg PO BID 05/06/20 iron) tablet gabapentin 300 mg capsule 600 mg PO TID cap 05/06/20 guaifenesin 1,200 mg tablet, 1,200 mg PO BID PRN 05/06/20 extended release 12 hr levothyroxine 75 mcg tablet 75 mcg PO DAILY tab 05/06/20 metoprolol succinate 25 mg PO 05/06/20 tablet,extended release 24 hr multivitamin 1 tab PO DAILY 05/06/20 sertraline 100 mg tablet 200 mg PO Q24H tab 05/06/20 tamsulosin 0.4 mg capsule 0.8 mg PO DAILY cap 05/06/20 Maternal Family History: Family History (Last Reviewed 05/06/20 @ 16:[address] Ja Worthington MD) Father Cancer Mother CVA (cerebral vascular accident) Family History: No pertinent history Smoking Status: Current every day smoker Tobacco Use: Cigarettes Physical Exam Vital Signs Temp Pulse Resp BP 96.9 F L 75 16 113/78 07/16/20 10:31 07/16/20 10:31 07/16/20 10:31 07/16/20 10:31 General: Alert, Oriented x3, Cooperative, No apparent distress, Well developed, Well nourished HEENT: Atraumatic, PERRLA, EOMI, Normocephalic Lungs: Normal air movement Psych/Mental Status: Normal Affect, Appropriate, Alert and oriented to time, place, person, mood and affect Assessment/Plan The patient appears to be tolerating hyperbaric oxygen therapy well, which will be continued as per the patient's medical plan. 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
[2020-07-17 10:38] VITALS: BP 111/83; BP 143/54; PULSE 68; PULSE 78; RESP 16; TEMP 36.2
--- NOTE | 2020-07-17 12:17 | HBO.PN.PCM_ITS ---
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 Progress: Today's session represents the 30th session of hyperbaric oxygen therapy of a planned 30 such sessions. Tolerance of hyperbaric oxygen therapy: Hyperbaric oxygen therapy was administered as per the facility's protocol. Hyperbaric oxygen therapy was ad ministered for 90 minutes at 2 ingrid, with no air breaks. Patient tolerated hyperbaric oxygen therapy well, without complaints or complications. Upon emergence from the hyperbaric oxygen chamber, the patient's vital signs remained stable. The patient was discharged in good condition. Past Medical History Chronic Problems (Last Updated 05/31/20 @ 15:[address] 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) Bilateral lower extremity edema (Chronic) Dyslipidemia (Chronic) BPH (benign prostatic hyperplasia) (Chronic) GERD (gastroesophageal reflux disease) (Chronic) Psoriasis (Chronic) COPD (chronic obstructive pulmonary disease) (Chronic) Allergies/Adverse Reactions: Allergies No Known Allergies Allergy (Verified 05/06/20 10:31) Home Medications: Ambulatory Orders Medication Instructions Recorded Omeprazole [Prilosec] 40 mg PO DAILY 04/28/17 Acetaminophen [Tylenol] 650 mg PO Q6H PRN PRN 06/03/17 Cetirizine HCl [Zyrtec] 10 mg PO DAILY 06/03/17 albuterol sulfate 90 mcg/actuation 2 puff INHALATION Q6H PRN 05/06/20 aerosol inhaler baclofen 10 mg tablet 10 mg PO BID tab 05/06/20 ferrous sulfate 325 mg (65 mg 325 mg PO BID 05/06/20 iron) tablet gabapentin 300 mg capsule 600 mg PO TID cap 05/06/20 guaifenesin 1,200 mg tablet, 1,200 mg PO BID PRN 05/06/20 extended release 12 hr levothyroxine 75 mcg tablet 75 mcg PO DAILY tab 05/06/20 metoprolol succinate 25 mg PO 05/06/20 tablet,extended release 24 hr multivitamin 1 tab PO DAILY 05/06/20 sertraline 100 mg tablet 200 mg PO Q24H tab 05/06/20 tamsulosin 0.4 mg capsule 0.8 mg PO DAILY cap 05/06/20 Maternal Family History: Family History (Last Reviewed 05/06/20 @ 16:[address] Ja Worthington MD) Father Cancer Mother CVA (cerebral vascular accident) Family History: No pertinent history Smoking Status: Current every day smoker Tobacco Use: Cigarettes Physical Exam Vital Signs Temp Pulse Resp BP 97.2 F L 78 16 111/83 H 07/17/20 10:38 07/17/20 10:38 07/17/20 10:38 07/17/20 10:38 Assessment/Plan The patient appears to be tolerating hyperbaric oxygen therapy well, which will be continued as per the patient's medical plan. 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
== END 2020-08-15 23:59 ==
LOC: WC 10:00
PROVIDERS: PCP Nurse Practitioner Family; Visit Provider Nurse Practitioner
DX: M27.2 Inflammatory conditions of jaws (principal); I10 Essential (primary) hypertension; E78.5 Hyperlipidemia, unspecified; N40.0 Benign prostatic hyperplasia without lower urinary tract symptoms; K21.9 Gastro-esophageal reflux disease without esophagitis; J44.9 Chronic obstructive pulmonary disease, unspecified; L40.9 Psoriasis, unspecified; H35.719 Central serous chorioretinopathy, unspecified eye; C09.9 Malignant neoplasm of tonsil, unspecified; F17.210 Nicotine dependence, cigarettes, uncomplicated
CPT/HCPCS: 99183; G0277